=== PATIENT | female | born 1970 | race Caucasian/White ===

== ENCOUNTER 2021-12-26 12:58 | Outpatient (CLI) | payer OTHER, SELFPAY ==
[2021-12-26 13:29] LABS: Hematocrit 35.9 % (37.0-47.0); Hemoglobin 12.9 g/dL (12.0-15.0); Mean Corpuscular HGB Conc 35.9 g/dl (32-36); Mean Corpuscular Hemoglobin 30.4 pg (26-34); Mean Corpuscular Volume 84.7 fl (80-100); Mean Platelet Volume 9.8 fl (7.4-10.4); Platelet Count Result 290 k/mm3 (150-375); Red Blood Count 4.24 M/mm3 (4.2-5.4); Red Cell Distribution Width 12.5 % (11.5-14.5); White Blood Count 10.1 K/mm3 (4.5-10.0)
[2021-12-26 13:50] LABS: Potassium 2.1 mmol/L (3.4-5.0)
[2021-12-26 13:51] LABS: Alanine Aminotransferase 25 U/L (6-35); Albumin Level 4.4 g/dL (3.5-5.1); Alkaline Phosphatase 82 U/L (38-126); Aspartate Amino Transferase 30 U/L (14-36); Bilirubin,Total 0.3 mg/dL (0.2-1.3); Blood Urea Nitrogen 9 mg/dL (7-17); Calcium 9.5 mg/dL (8.4-10.2); Carbon Dioxide > 40 mmol/L (22-30); Chloride 84 mmol/L (98-107); Cholesterol 175 mg/dL (0-200); Estimated Glomerular Filt Rate > 60; Glucose 112 mg/dL (65-110); HDL Direct 32 mg/dL; Sodium 127 mmol/L (137-145); Triglycerides 221 mg/dL (<150)
[2021-12-26 13:54] LABS: LDL Cholesterol Direct 56 mg/dL
== END 2021-12-26 12:59 | disposition home or self-care (01) ==
LOC: ANHLAB 12:59
PROVIDERS: PCP Family Medicine; Visit Provider Nurse Practitioner Family
DX: E78.2 Mixed hyperlipidemia (principal); R63.5 Abnormal weight gain; Z13.29 Encounter for screening for other suspected endocrine disorder; Z72.0 Tobacco use
CPT/HCPCS: 36415; 80053; 80061; 84443; 85027

== ENCOUNTER 2021-12-26 15:08 | Observation (INO) | payer OTHER, SELFPAY ==
[2021-12-26] VITALS (8 sets, daily range): BP systolic 96–106; BP diastolic 50–67; PULSE 76–93; RESP 11–18; TEMP 36.4–36.6; O2SAT 71–100
--- NOTE | 2021-12-26 15:31 | ECG_ITS ---
Measurements Intervals [place] Rate: 87 P: 71 IN: 159 QRS: -1 QRSD: 83 T: 12 QT: 395 QTc: 476 Interpretive Statements SINUS RHYTHM INFERIOR MYOCARDIAL INFARCTION , OF INDETERMINATE AGE Electronically Signed On 12-27-2021 10:45:43 CDT by Aristeo Ahn M.D.
--- NOTE | 2021-12-26 15:38 | ED.GENADULT ---
HPI - General Adult General Chief complaint: Recheck/Abnormal Lab/Rx Stated complaint: potassium 2.1 labs today Time Seen by Provider: 12/26/21 15:31 Source: RN notes reviewed History of Present Illness HPI narrative: Patient presents emergency department from home for hypokalemia. Patient states she gone to her PCP today for routine blood follow-up as she has Sammy's thyroiditis. States she was called back and told to come to the emergency department secondary to her low potassium level. He states she has a history of low potassium in the past and had been on potassium pills but stopped taking her medicine a month ago because she did not like taking the large pills. She states that she is on hydrochlorothiazide she denies any fevers or chills chest pain or shortness of breath states she has been having some generalized fatigue Related Data Home Medications Medication Instructions Recorded Confirmed lipase 3,000-protease PO 11/30/21 12/01/21 9,500-amylase 15,000 unit capsule, delayed rel (Creon) Allergies Allergy/AdvReac Type Severity Reaction Status Date / Time adhesive Allergy Unknown Unknown Verified 12/26/21 15:24 Review of Systems Review of Systems: Gen.: Denies fevers or chills ENT: Denies congestion Respiratory: Denies shortness of breath or cough CV: Denies chest pain or palpitations GI: Denies abdominal pain nausea, emesis Musculoskeletal: Denies back pain or muscle pain Neuro: Denies numbness, tingling, reports mild weakness Skin: Denies rash Except as documented, all other systems reviewed and negative [facility] Past Medical History Medical History (Updated 12/26/21 @ 16:35 by Aidan Monroy DO) BMI 26.0-26.9,adult Brown recluse spider bite Sammy's thyroiditis Nausea Surgical History Surgical History H/O knee surgery Family History Family History Father Family history of diabetes mellitus in first degree relative Family history of malignant neoplasm of urinary bladder Family history of type 2 diabetes mellitus Mother Family history of heart disease in male family member before age 55 Heart disease Pacemaker Sibling No problems noted. 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 CARDIOVASCULAR: Regular rate and rhythm without murmurs rubs or gallops. ABDOMINAL: Soft, nontender, nondistended, no rebound or guarding MUSCULOSKELETAl: Moves all extremities. No clubbing, cyanosis or edema. NEURO: Awake and alert x 4. Following commands, speech normal, no focal deficits SKIN:: Warm, dry. No rashes lesions or abrasions PSYCHIATRIC: Normal affect/mood, Course Course Emergency Course: Reviewed previous lab results showing a potassium of 2.1 Called discussed with ESVIN Martinez for Dr. Baez agrees with admission Discussed with patient and family results of workup and diagnosis. Discussed need for admission. Patient and family understand and agree to current treatment plan Vital Signs Vital signs: Vital Signs Temperature 97.9 F 12/26/21 15:21 Pulse Rate 93
[2021-12-26 15:59] LABS: Basophils Absolute Auto 0.1 K/mm3 (0.0-0.1); Basophils Percent Auto 0.7 % (0.2-1.2); Eosinophils Absolute Auto 0.4 K/mm3 (0-0.3); Eosinophils Percent Auto 3.9 % (0-4.4); Hematocrit 34.6 % (37.0-47.0); Hemoglobin 12.3 g/dL (12.0-15.0); Immature Granulocyte Absolute 0.02 K/mm3 (0.00-0.031); Immature Granulocyte Percent A 0.2 % (0-0.5); Lymphocytes Absolute Auto 3.86 K/mm3 (0.9-3.2); Lymphocytes Percent Auto 40.9 % (18.3-44.2); Mean Corpuscular HGB Conc 35.5 g/dl (32-36); Mean Corpuscular Hemoglobin 30.3 pg (26-34); Mean Corpuscular Volume 85.2 fl (80-100); Mean Platelet Volume 9.5 fl (7.4-10.4); Monocytes Absolute Auto 0.9 K/mm3 (0.1-0.6); Monocytes Percent Auto 9.4 % (2.6-8.5); Neutrophils Absolute Auto 4.2 K/mm3 (1.3-6.7); Neutrophils Percent Auto 44.9 % (45.5-73.1); Platelet Count Result 258 k/mm3 (150-375); Red Blood Count 4.06 M/mm3 (4.2-5.4); Red Cell Distribution Width 12.6 % (11.5-14.5); White Blood Count 9.4 K/mm3 (4.5-10.0)
[2021-12-26 16:12] LABS: Alanine Aminotransferase 26 U/L (6-35); Albumin Level 4.3 g/dL (3.5-5.1); Alkaline Phosphatase 86 U/L (38-126); Anion Gap 5 mmol/L (8-16); Aspartate Amino Transferase 34 U/L (14-36); Bilirubin,Total 0.2 mg/dL (0.2-1.3); Blood Urea Nitrogen 9 mg/dL (7-17); Calcium 9.4 mg/dL (8.4-10.2); Carbon Dioxide 39 mmol/L (22-30); Chloride 84 mmol/L (98-107); Estimated CRCL calculation 109 ml/min; Estimated Glomerular Filt Rate > 60; Glucose 114 mg/dL (65-110); Magnesium 1.7 mg/dL (1.6-2.3); Potassium 2.3 mmol/L (3.4-5.0); Sodium 128 mmol/L (137-145)
[2021-12-26] MEDS: POTASSIUM CHLORIDE 20 MEQ TABLET 40 MEQ PO (17:06)
[2021-12-26] MEDS: POTASSIUM CHLORIDE INJ 40 MEQ in SODIUM CHLORIDE 0.9% IV 500 ML 130 MEQ IVPB (17:06)
[2021-12-26] MEDS: MAGNESIUM SULF 2 GM/WATER 50ML 2 GM/50 ML BAG IVPB (17:06)
[2021-12-26 17:57] LABS: SARS-CoV-2 RNA PCR Negative
--- NOTE | 2021-12-26 18:43 | ADMGEN ---
This patient, Jessica Rivera, was admitted to 2 Medical Room 242-01. Patient/family oriented to hospital policies and general routines including ID bracelet, bed and alarms, visiting hours, pain management, procedures, bathroom and other care routines, personal items, smoking policy, room service/diet, and visiting hours. Information on how to activate the Rapid Response Team has been discussed. Patient/Family are encouraged to report perceived risks to care and to ask questions if they do not understand what they are told or what they should do. Report received from DIAMOND Hurst
[2021-12-26] MEDS: POTASSIUM CHLORIDE 20 MEQ PACKET (FOR LIQUID) 40 MEQ PO (20:04)
--- NOTE | 2021-12-26 20:38 | PM.IMHP ---
H&P: HPI History of Present Illness Date/Time: 12/26/21 20:38 Chief Complaint: Low-potassium Narrative: 51-year-old female with past medical history hypertension, hyperlipidemia, breast cancer status post mastectomy, and recent abscess to her back who presented to the ER after outpatient labs returned with potassium of 2.1. The patient reports that she has chronic low potassium. She stops taking her potassium pills several months ago because she reported that her potassium was always low in the potassium did not seem to help and she was tired of taking large pills. She was noted to have borderline low blood pressures on arrival to the ER but she reports that she has chronic low blood pressures. She states that she has also had swelling in her hands and face since 2009 when she had her mastectomy and chemotherapy for her breast cancer. A couple of years after that she was started on hydrochlorothiazide to treat the swelling and she has been on hydrochlorothiazide since then. Although her external med rec states that the patient's but beyond 37.5 mg of hydrochlorothiazide daily she only takes 25 daily. She reports chronic urinary frequency but denies any dysuria or hematuria. She denies any incontinence of urine. She denies any chest pain or shortness of breath. She has not noticed any palpitations. She reports that she feels like her usual self and only got labs done today because her primary had ordered them as outpatient in she had never gotten around to getting them. She reports that her adopted daughter was in labor in labor and delivery and she thought she would take a moment and go to the lab to have her labs drawn. She was startled when her primary care physician's office called her and told her to come to the ER for treatment. She does have chronic intermittent diarrhea that she associates with pancreatic insufficiency. She denies any nausea or vomiting. Review of Systems Review of Systems: 12 systems were reviewed with pertinent positives and negatives per HPI. Except as documented in the HPI, all other systems were reviewed and are negative. [facility] Past Medical History Medical History (Updated 12/27/21 @ 04:33 by Laurence Pompa DO) Anxiety disorder BMI 26.0-26.9,adult Brown recluse spider bite (~12/2019) With chronic nonhealing wound Cancer of left breast (~07/2009) Chronic hypokalemia Chronic hyponatremia Chronic sinusitis GERD (gastroesophageal reflux disease) Sammy's thyroiditis Mixed hyperlipidemia Mixed stress and urge urinary incontinence Pancreatic insufficiency Peripheral neuropathy due to and not concurrent with chemotherapy Tobacco use Vitamin D deficiency, unspecified Surgical History Surgical History (Updated 12/26/21 @ 20:53 by Laurence Pompa DO) H/O bilateral salpingo-oophorectomy Laparoscopic History of breast reconstruction (08/2009) History of laparoscopic appendectomy (10/2015) History of left total mastectomy (08/2009) History of sinus surgery History of vaginal hysterectomy Status post open reduction with internal fixation of fracture (06/2019) Right patellar fracture Family History Family History Father Diabetes mellitus Bladder cancer Lung disease Mother Heart disease Pacemaker Hypothyroidism Kidney disease Sibling Seizure Social History Social History (Updated 12/26/21 @ 20:57 by Laurence Pompa DO) Social History: Code status: Full code Surrogate decision maker: Smoking packs per day: 1 Smoking cigarettes per day: 20.0 Years smoked: 40 Smoking pack-years: 40.00 Smoking status: Current every day smoker Tobacco type: cigarettes Alcohol intake: unknown Alcohol use details: 1-2 per month Substance use: never Additional living arrangements comments: Patient is . She is raise 2 children. 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 [place]
[2021-12-26] MEDS: PANTOPRAZOLE 40 MG TABLET PO (22:11)
[2021-12-26] MEDS: buPROPion HCL SR (12 HR) 150 MG TAB PO (22:11)
[2021-12-26] MEDS: OLOPATADINE 0.1% OPHTH SOLN 5 ML BTL 1 DROP EACH EYE (22:11)
[2021-12-26] MEDS: CITALOPRAM HYDROBROMIDE 20 MG TABLET 40 MG PO (22:28)
[2021-12-26 23:33] LABS: Phosphorus 2.2 mg/dL (2.5-4.5); Potassium 2.8 mmol/L (3.4-5.0)
[2021-12-27] VITALS: PULSE 88
[2021-12-27] MEDS: POTASSIUM/PHOSPHORUS/SODIUM 1.5 GM PACKET 1 PACKET PO (00:11)
[2021-12-27] MEDS: POTASSIUM CHLORIDE 20 MEQ TABLET 40 MEQ PO ×2 (00:12→09:19)
[2021-12-27 04:00] VITALS: PULSE 88
[2021-12-27 05:05] VITALS: BP 90/60; PULSE 81; RESP 16; TEMP 36.4; O2SAT 100
[2021-12-27 05:42] LABS: Basophils Absolute Auto 0.1 K/mm3 (0.0-0.1); Eosinophils Absolute Auto 0.4 K/mm3 (0-0.3); Eosinophils Percent Auto 4.4 % (0-4.4); Hematocrit 34.4 % (37.0-47.0); Hemoglobin 11.9 g/dL (12.0-15.0); Immature Granulocyte Absolute 0.02 K/mm3 (0.00-0.031); Immature Granulocyte Percent A 0.2 % (0-0.5); Lymphocytes Absolute Auto 4.16 K/mm3 (0.9-3.2); Lymphocytes Percent Auto 47.2 % (18.3-44.2); Mean Corpuscular HGB Conc 34.6 g/dl (32-36); Mean Corpuscular Hemoglobin 30.2 pg (26-34); Mean Corpuscular Volume 87.3 fl (80-100); Monocytes Absolute Auto 0.9 K/mm3 (0.1-0.6); Monocytes Percent Auto 10.2 % (2.6-8.5); Neutrophils Absolute Auto 3.3 K/mm3 (1.3-6.7); Platelet Count Result 246 k/mm3 (150-375); Red Blood Count 3.94 M/mm3 (4.2-5.4); Red Cell Distribution Width 12.5 % (11.5-14.5); White Blood Count 8.8 K/mm3 (4.5-10.0)
[2021-12-27 05:59] LABS: Alanine Aminotransferase 21 U/L (6-35); Albumin Level 3.5 g/dL (3.5-5.1); Alkaline Phosphatase 77 U/L (38-126); Anion Gap 0 mmol/L (8-16); Aspartate Amino Transferase 26 U/L (14-36); Bilirubin,Total 0.2 mg/dL (0.2-1.3); Blood Urea Nitrogen 9 mg/dL (7-17); Calcium 8.5 mg/dL (8.4-10.2); Carbon Dioxide 35 mmol/L (22-30); Chloride 96 mmol/L (98-107); Estimated CRCL calculation 81 ml/min; Estimated Glomerular Filt Rate > 60; Glucose 108 mg/dL (65-110); Potassium 3.2 mmol/L (3.4-5.0); Sodium 131 mmol/L (137-145)
[2021-12-27 07:25] LABS: Appearance Urine Clear (Clear); Bilirubin Urine Negative (Negative); Blood Urine Trace-lysed (Negative); Color Urine Yellow (Yellow); Glucose Urine UA Negative (Negative); Ketones Urine Negative (Negative); Leukocyte Esterase Ur 2+ LEU/UL (Negative); Nitrate Urine Negative (Negative); Protein Urine Negative (Negative); Specific Grav Ur 1.015 (1.001-1.035)
[2021-12-27 07:42] LABS: Bacteria Urine Trace /hpf; Squamous Epithelial Cell Urine Occasional /hpf (Few); WBC Urine 21-30 /hpf
[2021-12-27 07:52] LABS: Add Urine Microscopic? YES
[2021-12-27 08:00] VITALS: PULSE 88
[2021-12-27 08:18] LABS: Potassium Urine Random 13.6 meq/L; Sodium Urine Random 25 meq/L
--- NOTE | 2021-12-27 09:07 | PM.IMPN ---
Progress Note: A&P Assessment and Plan (1) Acute hypokalemia: Code(s): E87.6 - Hypokalemia Status: Acute Assessment and Plan: The patient has severe hypokalemia likely due to acute on chronic in nature given lack of rhythm disturbance. She has a history of known longstanding hypokalemia but quit taking her oral potassium supplements. It is been discussed with the patient in detail that she cannot quit her potassium supplements otherwise she will require repeat hospitalizations. Patient has received a total of 120 mEq of potassium replacement. Will repeat potassium level at 11:30 p.m.. Will continue to monitor on telemetry. (2) Low blood pressure reading: Code(s): R03.1 - Nonspecific low blood-pressure reading Status: Acute Assessment and Plan: The patient's blood pressures are borderline low. Will stop hydrochlorothiazide due to both hypokalemia, hyponatremia and low blood pressures. Given the patient's recurrent hypokalemia and chronically low blood pressure it would be advisable for the patient not be started back on hydrochlorothiazide as an antihypertensive. (3) Chronic hyponatremia: Code(s): E87.1 - Hypo-osmolality and hyponatremia Status: Acute Assessment and Plan: Hydrochlorothiazide has been stopped. Will repeat BMP in a.m.. (4) Tobacco use: Code(s): Z72.0 - Tobacco use Status: Acute Assessment and Plan: Tobacco cessation education was provided (5) Chronic hypokalemia: Code(s): E87.6 - Hypokalemia Status: Acute Plan Anxiety disorder BMI 26.0-26.9,adult Brown recluse spider bite ~12/2019 Cancer of left breast ~07/2009 Chronic hypokalemia Chronic hyponatremia Chronic sinusitis GERD (gastroesophageal reflux disease) Sammy's thyroiditis Mixed hyperlipidemia Mixed stress and urge urinary incontinence Pancreatic insufficiency Peripheral neuropathy due to and not concurrent with chemotherapy Tobacco use Vitamin D deficiency, unspecified Subjective Date/time seen: 12/27/21 09:07 Interval history: HPI: 51-year-old female with past medical history hypertension, hyperlipidemia, breast cancer status post mastectomy, and recent abscess to her back who presented to the ER after outpatient labs returned with potassium of 2.1.? The patient reports that she has chronic low potassium.? She stops taking her potassium pills several months ago because she reported that her potassium was always low in the potassium did not seem to help and she was tired of taking large pills.? She was noted to have borderline low blood pressures on arrival to the ER but she reports that she has chronic low blood pressures.? She states that she has also had swelling in her hands and face since 2009 when she had her mastectomy and chemotherapy for her breast cancer.? A couple of years after that she was started on hydrochlorothiazide to treat the swelling and she has been on hydrochlorothiazide since then.? Although her external med rec states that the patient's but beyond 37.5 mg of hydrochlorothiazide daily she only takes 25 daily.? She reports chronic urinary frequency but denies any dysuria or hematuria.? She denies any incontinence of urine.? She denies any chest pain or shortness of breath.? She has not noticed any palpitations.? She reports that she feels like her usual self and only got labs done today because her primary had ordered them as outpatient in she had never gotten around to getting them.? She reports that her adopted daughter was in labor in labor and delivery and she thought she would take a moment and go to the lab to have her labs drawn.? She was startled when her primary care physician's office called her and told her to come to the ER for treatment.? She does have chronic intermittent diarrhea that she associates with pancreatic insufficiency.? She denies any nausea or vomiting. 12/27/21 Review of Systems Review of Systems: All syste
[2021-12-27] MEDS: OLOPATADINE 0.1% OPHTH SOLN 5 ML BTL 1 DROP EACH EYE (09:11)
[2021-12-27] MEDS: buPROPion HCL SR (12 HR) 150 MG TAB PO (09:11)
[2021-12-27] MEDS: PRAVASTATIN SODIUM 20 MG TABLET PO (09:11)
[2021-12-27] MEDS: PANTOPRAZOLE 40 MG TABLET PO (09:11)
[2021-12-27] MEDS: LIPASE/AMYLASE/PROTEASE 12,000 UNITS CAP 1 CAP PO (09:11)
--- NOTE | 2021-12-27 10:14 | PM.DS ---
DS: Admitting Diagnosis Discharge Date 12/27/2021 Admitting Diagnosis severe hypokalemia DS: Discharge Diagnosis Discharge Diagnosis (1) Acute hypokalemia: Code(s): E87.6 - Hypokalemia Status: Acute Assessment and Plan: The patient has severe hypokalemia likely due to acute on chronic in nature given lack of rhythm disturbance. She has a history of known longstanding hypokalemia but quit taking her oral potassium supplements since past month. It is been discussed with the patient in detail that she cannot quit her potassium supplements otherwise she will require repeat hospitalizations. Patient has received a total of 120 mEq of potassium replacement. continued monitoring of potassium. Improved gradually to 3.2 by the time of discharge. Hydrochlorothiazide that might be 1 of the culprit is stopped and restarted on her regular potassium supplementation. It was reiterated to her to continue taking potassium supplement regularly. With hydrochlorothiazide being off she might not need as much however needed repeat evaluation with BMP in a week and revaluation by her primary care physician. (2) Low blood pressure reading: Code(s): R03.1 - Nonspecific low blood-pressure reading Status: Acute Assessment and Plan: The patient's blood pressures are borderline low. Chronically low and stable. Does have dirty UA suggestive of UTI. Will treat that with cephalexin. Urine culture is pending at the time of discharge. Follow-up with PCP with regard to this. Hydrochlorothiazide will also be stopped Which will help. (3) Chronic hyponatremia: Code(s): E87.1 - Hypo-osmolality and hyponatremia Status: Acute Assessment and Plan: Hydrochlorothiazide has been stopped. recheck BMP in a 1 week (4) Tobacco use: Code(s): Z72.0 - Tobacco use Status: Acute Assessment and Plan: Tobacco cessation education was provided (5) Chronic hypokalemia: Code(s): E87.6 - Hypokalemia Status: Acute Plan other chronic medical conditions: Anxiety disorder Cancer of left breast ~07/2009 Chronic hypokalemia Chronic hyponatremia Chronic sinusitis GERD (gastroesophageal reflux disease) Sammy's thyroiditis Mixed hyperlipidemia Mixed stress and urge urinary incontinence Pancreatic insufficiency Peripheral neuropathy due to and not concurrent with chemotherapy Tobacco use Vitamin D deficiency, unspecified DS: Summary Hospital Course Hospital Course: see above Time Spent with Patient Time attestation: Total time spent providing and/or coordinating discharge services:45 minutes Exam Narrative: GENERAL: The patient is well developed, not in acute distress HEENT: Nonicteric sclerae, PERRLA, EOMI. Oropharynx clear. Moist mucous membranes. Conjunctivae appear well perfused. CHEST: Chest wall is nontender. HEART: Regular rate and rhythm without murmur, rubs, or gallops LUNGS: Clear to auscultation bilaterally. no respiratory distress ABDOMEN: Soft, positive bowel sounds, non-tender, no organomegaly. SKIN: No rash, no excessive bruising, petechiae, or purpura. NEUROLOGIC: Cranial nerves II-XII intact, alert and oriented x 3, no gross motor deficits EXTREMITIES: no edema, cyanosis or clubbing Extrem: General: normal exam except as noted and no edema DS: Data Data Completed and Pending Labs on day of discharge: Labs from last 24 hours 12/27/21 12/27/21 12/27/21 07:02 07:02 04:55 WBC RBC Hgb Hct MCV MCH MCHC RDW Plt Count MPV Immature Gran % (Auto) Neut % (Auto) Lymph % (Auto) Reeves % (Auto) Eos % (Auto) Baso % (Auto) Lymph # (Auto) Reeves # (Auto) Eos # (Auto) Baso # (Auto) Abs Immat Gran (auto) Absolute Neuts (auto) Absolute Nucleated RBC Nucleated RBC % Sodium 131 L Potassium 3.2 L Chloride 96 L Carbon Dioxide 35 H Anion Gap 0 L BUN 9 Crea
== END 2021-12-27 11:20 | disposition home or self-care (01) ==
LOC: ANHED 16:35 → ANH2MED 18:30
PROVIDERS: Internal Medicine; Admitting Provider Internal Medicine; Emergency Provider Emergency Medicine; PCP Family Medicine; Visit Provider Internal Medicine
DX: E87.6 Hypokalemia (principal); R03.1 Nonspecific low blood-pressure reading; E87.1 Hypo-osmolality and hyponatremia; Z20.822 Contact with and (suspected) exposure to COVID-19; Z85.3 Personal history of malignant neoplasm of breast; K21.9 Gastro-esophageal reflux disease without esophagitis; E78.5 Hyperlipidemia, unspecified; E55.9 Vitamin D deficiency, unspecified; F17.210 Nicotine dependence, cigarettes, uncomplicated
CPT/HCPCS: 36415; 80053; 81001; 83735; 84100; 84132; 84133; 84300; 85025; 87086; 87088; 93005; 96365; 96375; 99285; A9270; C9803; G0378; J3475; J3480; J7040; U0003; U0005

== ENCOUNTER 2024-10-22 10:47 | Outpatient (CLI) | payer OTHER, SELFPAY ==
--- NOTE | ~2024-10-22 | CT_ITS ---
Clinical Indication: Rib fracture CT Scan of the Chest with Contrast: Technique: Contiguous sections were acquired throughout the chest after intravenous administration of 75 cc of Omnipaque 350. Dose reduction technique was used on this scan by utilizing automated exposu re control and iterative reconstruction technique. The dose-length product (DLP) was 159.05 mGy-cm. Findings: There is no evidence of any significant mediastinal, hilar or axillary lymphadenopathy. There is no f illing defect in the pulmonary arterial tree to suggest pulmonary embolus. There is no evidence of ao rtic dissection or aneurysm. There is no evidence of pleural or pericardial effusion. There is mild emphysema. 1.1 cm right upper lobe pulmonary nodule present (axial image 34). There is linear scarring left lung base. There is irregular groundglass/semisolid opacity in the left upper lo be (axial image 41), measuring up to approximately 31 mm in maximum extent. Images through the upper abdomen reveal no abnormalities. There are subacute to chronic fracture of the lateral right ninth rib. Impression: 1.1 cm right upper lobe pulmonary nodule, indeterminate. Consider short-term follow-up exam in 1-3 mo nths, PET/CT, or tissue sampling. Irregular groundglass/semisolid lesion left upper lobe, nonspecific. Recommend follow-up exam in 6-12 months. Subacute to chronic lateral right ninth rib fracture. Mild emphysema. Reviewed, dictated and finalized at [facility]. Impression: 1.1 cm right upper lobe pulmonary nodule, indeterminate. Consider short-term fo llow-up exam in 1-3 months, PET/CT, or tissue sampling. Irregular groundglass/semisolid lesion left upper lobe, nonspecific. Recommend follow-up exam in 6-12 months. Subacute to chronic lateral right ninth rib fracture. Mild emphysema.
[2024-10-22 11:22] LABS: Estimated Glomerular Filt Rate > 60
[2024-10-22 11:43] LABS: Basophils Absolute Auto 0.1 K/mm3 (0.0-0.1); Basophils Percent Auto 0.8 % (0.2-1.2); Eosinophils Absolute Auto 0.2 K/mm3 (0-0.3); Eosinophils Percent Auto 2.3 % (0-4.4); Hematocrit 34.1 % (37.0-47.0); Hemoglobin 11.6 g/dL (12.0-15.0); Immature Granulocyte Absolute 0.02 K/mm3 (0.00-0.031); Immature Granulocyte Percent A 0.2 % (0-0.5); Lymphocytes Absolute Auto 3.58 K/mm3 (0.9-3.2); Lymphocytes Percent Auto 36.4 % (18.3-44.2); Mean Corpuscular Volume 88.1 fl (80-100); Mean Platelet Volume 9.6 fl (7.4-10.4); Monocytes Absolute Auto 1.2 K/mm3 (0.1-0.6); Monocytes Percent Auto 11.7 % (2.6-8.5); Neutrophils Absolute Auto 4.8 K/mm3 (1.3-6.7); Neutrophils Percent Auto 48.6 % (45.5-73.1); Platelet Count Result 283 k/mm3 (150-375); Red Blood Count 3.87 M/mm3 (4.2-5.4); White Blood Count 9.8 K/mm3 (4.5-10.0)
[2024-10-22 11:58] LABS: Alanine Aminotransferase 29 U/L (6-35); Albumin Level 3.8 g/dL (3.5-5.1); Alkaline Phosphatase 101 U/L (38-126); Anion Gap 5 mmol/L (4-12); Aspartate Amino Transferase 32 U/L (14-36); Bilirubin,Total 0.7 mg/dL (0.2-1.3); Blood Urea Nitrogen 9 mg/dL (7-17); Carbon Dioxide 28 mmol/L (22-30); Chloride 97 mmol/L (98-107); Cholesterol 157 mg/dL (0-200); Estimated Glomerular Filt Rate > 60; Glucose 103 mg/dL (65-110); HDL Direct 38 mg/dL; Potassium 3.3 mmol/L (3.4-5.0); Sodium 130 mmol/L (137-145); Triglycerides 139 mg/dL (<150)
[2024-10-22 12:08] LABS: LDL Cholesterol Direct 48 mg/dL
--- OUTSIDE RECORDS SUMMARY | 2024-10-22 12:39 | XMS_ITS ---
Author Organization [facility] Address [address] [place] [address] J[place] [id number] Care Team Providers Care Private Detective Name Role Phone Amari Dong MD Primary Care Provider + [phone] Active Problems Problem Noted Date Diagnosed Date Pancreatolithiasis 01/08/2021 Cellulitis and abscess of right leg 02/22/2020 Assessment & Plan (02/23/2020 12:45 PM CDT): Excisional debridement and drainage in the operating room was recommended. Procedure was explained in detail. Postoperative pain, disability and presence of open wound requiring healing by granulation were explained. All patient questions were answered to her full satisfaction she wished to proceed with surgery. Hypokalemia 02/22/2020 Malignant neoplasm of left b reast in female, estrogen receptor positive 04/04/2018 Hyperlipidemia GERD (gastroesophageal reflux disease) Sammy's thyroiditis Depression Current Treatment and Therapy Plans No current plan information found. Past Treatment and Therapy Plans No past plan information found. 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 The lateral view shows fracture line is evident as well. Patient is smoker. Her surgery was over 90 days ago. There is been no significant sign of healing. The fracture gap measures less than 1 cm. I recommended using a bone stimulator to address his atrophic nonunion. I counseled the patient the negative effects of smoking and bone healing. Clinically she is able to perform active knee extension and on the x- ray it appears the lateral screw has callus on the AP view. She will follow up with me 4 weeks after she gets her bone stem. Displaced comminuted fracture of patella 06/20/2019 02/22/2020 Overview (06/20/2019): Added automatically from request for surgery [id number] Assessment & Plan (08/25/2019 4:33 PM PHARMACY DISTRICT MANAGER): X-rays taken the office today show maintenance of alignment. Alignment is near anatomic. Clinically she has excellent flexion up to 115. She is going to continue with physical therapy then transition to a home exercise program once the prescription is complete. Follow up with me in 1 month repeat x-rays Assessment & Plan (07/28/2019 8:37 PM PHARMACY DISTRICT MANAGER): X-rays show alignment. No evidence of displacement. Her incision is well healed. I recommended the patient continue with knee brace locked in full extension with ambulation. She is scheduled to begin physical therapy to work on passive flexion exercises. We discussed wound care. I reviewed with her the importance of continuing to wear her knee brace. She will follow up with me in 4 weeks repeat x-rays Assessment & Plan (07/14/2019 2:31 PM PHARMACY DISTRICT MANAGER): Patient was given a prescription for outpatient physical therapy. She can weight bear as tolerated with the knee locked in full extension using the immobilizer. We discussed wound care. She will need follow-up in 2 weeks to remove the adhesive bandage. Repeat x-rays at office visit in 2 weeks Assessment & Plan (07/07/2019 3:40 PM PHARMACY DISTRICT MANAGER): Repeat x-rays show persistent displacement transverse comminuted patella fracture. The patient has had electrolyte abnormalities with associated EKG changes that limits her ability to have surgery. She is scheduled to have labs drawn this afternoon. I would like to have her added on for surgery on Sunday. She was placed into a hinged knee brace locked in full extension today. Assessment & Plan (06/23/2019 12:34 PM PHARMACY DISTRICT MANAGER): The patient has a displaced comminuted fracture of the patella. She will need open reduction and internal fixation of the patella and patellar tendon. She will need to be immobilizer for approximately 6 weeks postoperatively. She did not wish to have her surgery performed prior to [place]. She will be scheduled for surgery after [place]. We discussed the risks of surgery including but not limited to persistent pain decreased range of motion stiffness and weakness. Informed consent was obtained. Displaced osteochondral frac ture of right patella 06/20/2019 02/22/2020 Overview (06/26/2019): Added automatically from request for surgery [id number]
--- OUTSIDE RECORDS SUMMARY | 2024-10-22 12:40 | XMS_ITS | Clinical Summary ---
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 Date Activated Date Inactivated Comments 02/22/2020 11:40 PM 02/23/2020 7:34 PM Care Teams Steel Erector Apprentice Relationship Specialty Start Date End Date Amari Dong MD PCP - General 06/17/19
--- OUTSIDE RECORDS SUMMARY | 2024-10-22 12:40 | XMS_ITS | Referral Summary ---
Author Organization [facility] Address [address] [place] [id number] Care Team Providers Care Screw Machine Tender Name Role Phone Amari Dong MD Primary Care Provider + [phone] Encounters Date Type Department Care Team Description 07/31/2024 12:26 PM BLENDER CONVEYOR OPERATOR - 07/31/2024 4:23 PM [facility] Emergency [facility] [address] [place] [address] Mass of right lung (Primary Dx); Mass of left lung; Chronic obstructive pulmonary disease with acute exacerbation (HCC); Closed fracture of one rib of right side, initial encounter Discharge Disposition: Discharge to home or self care from Last 3 Months Allergies Active Allergy Reactions Criticality Noted Date Comments Adhesive Rash Medium 07/07/2019 Medications buPROPion SR (WELLBUTRIN SR) 150 mg 12 hr tablet TK 1 T PO BID 0 9 Active citalopram (CeleXA) 40 mg tablet TK 1 T PO QD 3 9 Active hydroCHLOROthia zide (HYDRODIURIL) 25 mg tablet TK 1 AND /2 TS PO QD 2 9 Active omeprazole [...] (07/08/2019): Added automatically from request for surgery [id number] Assessment & Plan (11/03/2019 1:27 PM CDT): [...] (06/20/2019): Added automatically from request for surgery [id number] Assessment & Plan (08/25/2019 4:33 PM BLENDER CONVEYOR OPERATOR): X-rays taken the office today show maintenance of alignment. Alignment is near anatomic. Clinically she has excellent flexion up to 115. She is going to continue with physical therapy then transition to a home exercise program once the prescription is complete. Follow up with me in 1 month repeat x-rays Assessment & Plan (07/28/2019 8:37 PM BLENDER CONVEYOR OPERATOR): X-rays show alignment. No evidence of displacement. [...] x-rays Assessment & Plan (07/14/2019 2:31 PM BLENDER CONVEYOR OPERATOR): Patient was given a prescription for outpatient physical therapy. She can weight bear as tolerated with the knee locked in full extension using the immobilizer. We discussed wound care. She will need follow-up in 2 weeks to remove the adhesive bandage. Repeat x-rays at office visit in 2 weeks Assessment & Plan (07/07/2019 3:40 PM BLENDER CONVEYOR OPERATOR): Repeat x-rays show persistent displacement transverse comminuted [...] today. Assessment & Plan (06/23/2019 12:34 PM BLENDER CONVEYOR OPERATOR): The patient has a displaced comminuted fracture of the patella. She will need open reduction and internal fixation of the patella and patellar tendon. She will need to be immobilizer for approximately 6 weeks postoperatively. She did not wish to have her surgery performed prior to [place]. She will be scheduled for surgery after [place]. We discussed the risks of surgery including but not limited to persistent pain decreased range of motion stiffness and weakness. Informed consent was obtained. Displaced osteochondral frac ture of right patella 06/20/2019 02/22/2020 Overview (06/26/2019): Added automatically from request for surgery [id number] Immunizations Immunization Administration Dates Next Due Influenza, Unspecified 04/04/2016,02/23/2015, Social History Tobacco Use Types Packs/Day Years [...] on file Legal Sex Female 8:23 PM BLENDER CONVEYOR OPERATOR Gender Identity Not on file Sexual Orientation Not on file Last Filed Vital Signs Vital Sign Reading Time Taken Comments Blood Pressure 123/85 07/31/2024 4:21 PM BLENDER CONVEYOR OPERATOR Pulse 81 07/31/2024 4:21 PM BLENDER CONVEYOR OPERATOR Temperature 36.6 C (97.8 F) 07/31/2024 4:21 PM BLENDER CONVEYOR OPERATOR Respiratory Rate 17 07/31/2024 4:21 PM BLENDER CONVEYOR OPERATOR Oxygen Saturation 99% 07/31/2024 4:21 PM BLENDER CONVEYOR OPERATOR Inhaled Oxygen Concentration - - Weight 77.1 kg (169 lb 15.6 oz) 025 10:32 AM BLENDER CONVEYOR OPERATOR Height 172.7 cm (5' 8 ) 11/25/2021 1:06 PM CDT Body Mass Index 25.84 11/25/2021 1:06 PM CDT Plan of Treatment Not on file Medical Devices Implanted Type Area General Practice Device Identifier Shelf Expiration Date Model / Serial / Lot Implants N/A: Breast [employer]hew/Rich[employer]/ Ortho [id number] Tc-100 7mm Hexagon Washer Orthopedic Nonsterile - [id number] Implanted:Qty: 2 on 07/09/2019 by Pavan Momin DO at [facility] Right: Knee [employer]hew/Richco/Or tho [id number] / / Lu[employer] Nephew/Richco/ Ortho [id number] Nieves-Loc 4mm 6mm 46mm 15mm Self Tap Cannulated Trocar Hip 2.5mm - [id number] Implanted:Qty: 1 on 07/09/2019 by Pavan Momin DO at [facility] Right: Knee Luu [employer] Nephew/Richco/Or tho [id number] / / Luu [employer] Nephew/Richco/ Ortho [id number] 4mm 6mm 1.3mm 44mm 2.9mm Cannulated Self Tap Self Drill Trocar - [id number] Implanted:Qty: 1 on 07/09/2019 by Pavan Momin DO at [facility] Right: Knee Lu[employer]hew/Richco/Or tho [id number] / / Procedures Procedure Name Priority Date/Time Associated Diagnosis Comments CT CHEST PE W CONTRAST ED 2:20 PM BLENDER CONVEYOR OPERATOR EGFR STAT 07/31/2024 1:14 PM BLENDER CONVEYOR OPERATOR DIFFERENTIAL AUTO STAT 07/31/2024 1:1 4 PM BLENDER CONVEYOR OPERATOR COMPREHENSIVE METABOLIC PANEL STAT 07/31/2024 1:14 PM BLENDER CONVEYOR OPERATOR CBC WITH AUTO DIFFERENTIAL STAT 07/31/2024 1:14 PM BLENDER CONVEYOR OPERATOR ECG 12-LEAD Routine 07/31/2024 1:05 PM BLENDER CONVEYOR OPERATOR XR RIBS RIGHT W PA CHEST ED 07/31/2024 11:02 AM BLENDER CONVEYOR OPERATOR INFLUENZA A/B, RSV, AND COVID-19 PCR Routine 07/31/2024 10:39 AM BLENDER CONVEYOR OPERATOR from Last 3 Months Results * CT Chest PE (CTA) W Contrast (07/31/2024 2:20 PM BLENDER CONVEYOR OPERATOR) Anatomical Region Laterality Modality Body N/A Computed Tomogra phy 07/31/2024 3:09 PM BLENDER CONVEYOR OPERATOR Impressions 08/01/2024 9:35 AM BLENDER CONVEYOR OPERATOR 1. No acute pulmonary embolism. 2. Spiculated [...] Verona Diane M.D. Narrative 08/01/2024 9:35 AM BLENDER CONVEYOR OPERATOR EXAMINATION: CT CHEST PE (CTA) W CONTRAST [...] also slightly increased in size compared to 202 CT. Emphysematous changes of bilateral lung apices. [...] signed by: Verona Diane M.D. Ruthy Agudelo [facility] MANAGER PROJECT IMG CT PROCEDURES F inal Result * eGFR (07/31/2024 1:14 PM BLENDER CONVEYOR OPERATOR) eGFR >90 >=60 mL/min/1. 73 m2 Comment: [...] last reviewed 2021. Blood 07/31/2024 1:14 PM BLENDER CONVEYOR OPERATOR 07/31/2024 1:16 PM BLENDER CONVEYOR OPERATOR us Ruthy Agudelo [facility] MANAGER PROJECT LAB BLOOD ORDERABLE S Final Result [facility]) [address] [place] [address] * Differential, auto (07/31/2024 1:14 PM BLENDER CONVEYOR OPERATOR) Neutrophil abs 5.4 1.5 - 6.5 K/cumm Imm gran abs 0.0 0.0 - 0.1 K/cumm [facility] ([place]) Lymphocyte abs 3.3 0.8 - 3.3 K/cumm [facility]) Monocyte abs 0.7 0.2 - 0.8 K/cumm [facility]) Eosinophil abs 0.4 0.0 - 0.5 K/cumm [facility] ([place]) Basophil abs 0.1 0.0 - 0.1 K/cumm [facility] ([place]) Neutrophil pct 53.8 % [facility] ([place]) Comment: Interpretive Data Percent cell count reference ranges are not reported, since discordance with absolute values may lead to misinterpretation of CBC data. Current Interpretive Data was last revised on 2017. Imm gran pct 0.4 % [facility] ([place]) Comment: Interpretive Data Percent cell count reference ranges are not reported, since discordance with absolute values may lead to misinterpretation of CBC data. Current Interpretive Data was last revised on 2017. Lymphocyte pct 32.9 % [facility] ([place]) Comment: Interpretive Data Percent cell count reference ranges are not reported, since discordance with absolute values may lead to misinterpretation of CBC data. Current Interpretive Data was last revised on 2017. Monocyte pct 7.4 % [facility] ([place]) Comment: Interpretive Data Percent cell count reference ranges are not reported, since discordance with absolute values may lead to misinterpretation of CBC data. Current Interpretive Data was last revised on 2017. Eosinophil pct 4.1 % [facility] Comment: Interpretive Data Percent cell count reference ranges are not reported, since discordance with absolute values may lead to misinterpretation of CBC data. Current Interpretive Data was last revised on 2017. Basophil pct 1.4 % [facility] ([place]) Comment: Interpretive Data Percent cell count reference ranges are not reported, since discordance with absolute values may lead to misinterpretation of CBC data. Current Interpretive Data was last revised on 2017. Blood 07/31/2024 1:14 PM BLENDER CONVEYOR OPERATOR 07/31/2024 1:16 PM BLENDER CONVEYOR OPERATOR us Ruthy Agudelo [facility] MANAGER PROJECT LAB BLOOD ORDERABLE S Final Result [facility]) [address] Department [place] [address] * (ABNORMAL) CBC with auto differential (07/31/2024 1:14 PM BLENDER CONVEYOR OPERATOR) WBC 10.0(H) 3.8 - 9.9 K/cumm Hgb 12.5 11.9 - 15.5 g/dL [facility]) Hct 36.4 35.6 - 45.5 % [facility] ([place]) Plt 490(H) 150 - 400 K/cumm [facility]) MPV 8.5(L) 9.1 - 12.3 fL [facility] ([place]) RBC 4.24 3.90 - 5.20 M/cumm [facility]) MCV 85.8 81.3 - 96.4 fL [facility]) MCH 29.5 27.1 - 33.3 pg [facility] MCHC 34.3 32.3 - 35.7 g/dL [facility]) RDW CV 12.8 11.1 - 14.9 % [facility]) RDW SD 39.9 35.7 - 48.1 fL [facility] NRBC abs 0.00 0.00 - 0.01 K/cumm [facility]) Blood 07/31/2024 1:14 PM BLENDER CONVEYOR OPERATOR 07/31/2024 1:16 PM BLENDER CONVEYOR OPERATOR us Ruthy Agudelo [facility] MANAGER PROJECT LAB BLOOD ORDERABLE S Final Result [facility]) [address] Department [place] [address] * (ABNORMAL) Comprehensive metabolic panel (07/31/2024 1:14 PM BLENDER CONVEYOR OPERATOR) Sodium 130(L) 135 - 145 mmol/L Potassium, pl 4.2 3.3 - 4.9 mmol/L [facility]) Chloride 93(L) 97 - 110 mmol/L [facility]) CO2 27.0 22.0 - 32.0 mmol/L [facility]) Anion gap 10 2 - 15 mmol/L [facility]) BUN 5(L) 6 - 25 mg/dL [facility]) Creatinine 0.57(L) 0.60 - 1.10 mg/dL [facility]) Glucose 88 70 - 199 mg/dL [facility] Comment: Interpretive Data Fasting glucose >/= 126 [...] 2022 Calcium 9.3 8.5 - 10.3 mg/dL [facility]) Bilirubin, total 0.2 0.1 - 1.2 mg/dL [facility]) Protein, pl 6.9 6.5 - 8.5 g/dL [facility]) Albumin 3.9 3.5 - 5.0 g/dL [facility]) Alk phos 120 40 - 130 Units/L [facility] ALT 21 7 - 45 Units/L [facility] AST 19 10 - 45 Units/L [facility]) Blood 07/31/2024 1:14 PM BLENDER CONVEYOR OPERATOR 07/31/2024 1:16 PM BLENDER CONVEYOR OPERATOR us Ruthy Agudelo [facility] MANAGER PROJECT LAB BLOOD ORDERABLE S Final Result Performing Organization Address City/State/[facility] Co de Phone Number [facility]) [address] Department of Laboratories JED [place] [id number] * ECG 12 lead (07/31/2024 1:05 PM BLENDER CONVEYOR OPERATOR) 07/31/2024 1:05 PM BLENDER CONVEYOR OPERATOR Narrative [facility] - 08/02/2024 8:24 AM BLENDER CONVEYOR OPERATOR Vent Rate: 78 bpm RR Interval: 762 msec [place] Interval: 146 msec QRS Duration: 74 msec QT Interval: 376 msec QTC Interval: 410 msec P-R-T [place]: 75 - -22 - 17 degrees IMPRESSION: SINUS RHYTHM LOW VOLTAGE ECG POSSIBLE ANTERIOR MYOCARDIAL INFARCTION , OF INDETERMINATE AGE ABNORMAL ECG NO PREVIOUS TRACING AVAILABLE FOR COMPARISON Electronically Signed By: Dr. Bismark Ewing M.D. Ruthy Garcia Sarah MANAGER PROJECT ECG ORDERABLES Fin al Result [facility] * XR Ribs Right W PA Chest 3 or More Views (07/31/2024 11:02 AM BLENDER CONVEYOR OPERATOR) Anatomical Region Laterality Modality Rib, Chest Right Computed Radiogr aphy 07/31/2024 11:4 6 AM BLENDER CONVEYOR OPERATOR Impressions 07/31/2024 12:44 PM BLENDER CONVEYOR OPERATOR No prior chest radiograph available for comparison. [...] Verona Diane M.D. Narrative 07/31/2024 12:44 PM BLENDER CONVEYOR OPERATOR EXAMINATION: XR RIBS RIGHT W PA CHEST [...] it. Electronically signed by: Verona Diane M.D. us Kaleb Cruz MD IMG XR PROCEDURES Final Res ult * Influenza A/B, RSV, and COVID-19 PCR Nasopharyngeal (07/31/2024 10:39 AM BLENDER CONVEYOR OPERATOR) COVID-19 RNA Negative Negative Influenza A RNA Negative Negative [facility] ([place]) Influenza B RNA Negative Negative [facility] ([place]) RSV RNA Negative Negative [facility] ([place]) Comment: Interpretive data: Testing performed by [facility]. This test is performed using the [employer] Xpert Xpress CoV-2/Flu/RSV plus assay. This is a multiplex, real-time reverse transcriptase PCR assay intended for the qualitative detection of nucleic acid from SARS-CoV-2, influenza A, influenza B, and respiratory syncytial virus. This assay has been cleared by the [place] Food and Drug administration. The performance characteristics have been verified by the [facility]. Results must be considered in the clinical context, and a negative result does not rule out infection. Interpretive Data last revised 2023 Nasopharyngeal 07/31/2024 10 :39 AM BLENDER CONVEYOR OPERATOR 07/31/2024 10:42 AM BLENDER CONVEYOR OPERATOR Narrative [facility] ([place] - 07/31/2024 11:19 AM BLENDER CONVEYOR OPERATOR Is the Patient experiencing symptoms consistent with COVID?->Yes Kaleb Cruz MD LAB MICROBIOLOGY - GENERAL ORDERABLES Final Result [facility] ([place]) [address] Department of Laboratories JED [place] [id number] from Last 3 Months Insurance AETNA SIG [id number] IDPA AETNA SIG [id number] [facility] CMR Advance Directives For more information, please contact: [phone] * Full Code (Latest Code Status on File) Date Activated Date Inactivated Comments 02/22/2020 11:40 PM 02/23/2020 7:34 PM Care Teams Screw Machine Tender Relationship Specialty Start Date End Date Amari Dong MD PCP - General 06/17/19
== END 2024-10-22 10:48 | disposition home or self-care (01) ==
PROVIDERS: Physician Assistant Medical; PCP Family Medicine; Visit Provider Nurse Practitioner Family
DX: S22.31XA Fracture of one rib, right side, initial encounter for closed fracture (principal); R91.1 Solitary pulmonary nodule; J43.9 Emphysema, unspecified; E78.5 Hyperlipidemia, unspecified; E78.2 Mixed hyperlipidemia; E06.3 Autoimmune thyroiditis; R73.09 Other abnormal glucose; K86.89 Other specified diseases of pancreas
CPT/HCPCS: 36415; 71260; 80053; 80061; 84443; 85025; Q9967

== ENCOUNTER 2024-11-26 13:08 | Outpatient (CLI) | payer OTHER, SELFPAY ==
--- OUTSIDE RECORDS SUMMARY | 2024-11-26 13:13 | XMS_ITS | Clinical Summary ---
Author Organization [facility] Address [address] [place] [address] [place] [id number] Care Team Providers Care Visual Merchandising Coordinator Name Role Phone Amari Dong MD Primary Care Provider + [phone] Allergies Active Allergy Reactions Criticality Noted Date [...] (07/08/2019): Added automatically from request for surgery [id number] Assessment & Plan (11/03/2019 1:27 PM CDT): [...] (06/20/2019): Added automatically from request for surgery [id number] Assessment & Plan (08/25/2019 4:33 PM PROFESSIONAL POKER PLAYER): X-rays taken the office today show maintenance of alignment. Alignment is near anatomic. Clinically she has excellent flexion up to 115. She is going to continue with physical therapy then transition to a home exercise program once the prescription is complete. Follow up with me in 1 month repeat x-rays Assessment & Plan (07/28/2019 8:37 PM PROFESSIONAL POKER PLAYER): X-rays show alignment. No evidence of displacement. [...] x-rays Assessment & Plan (07/14/2019 2:31 PM PROFESSIONAL POKER PLAYER): Patient was given a prescription for outpatient physical therapy. She can weight bear as tolerated with the knee locked in full extension using the immobilizer. We discussed wound care. She will need follow-up in 2 weeks to remove the adhesive bandage. Repeat x-rays at office visit in 2 weeks Assessment & Plan (07/07/2019 3:40 PM PROFESSIONAL POKER PLAYER): Repeat x-rays show persistent displacement transverse comminuted [...] today. Assessment & Plan (06/23/2019 12:34 PM PROFESSIONAL POKER PLAYER): The patient has a displaced comminuted fracture of the patella. She will need open reduction and internal fixation of the patella and patellar tendon. She will need to be immobilizer for approximately 6 weeks postoperatively. She did not wish to have her surgery performed prior to [place]. She will be scheduled for surgery after [place]. We discussed the risks of surgery including but not limited to persistent pain decreased range of motion stiffness and weakness. Informed consent was obtained. 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 07/08/2019 Added automatically from req uest for surgery [id number] Family History Medical History Relation Name Comments [...] on file Legal Sex Female 8:23 PM PROFESSIONAL POKER PLAYER Gender Identity Not on file Sexual Orientation Not on file Obstetrics History Last Filed Vital Signs Vital Sign Reading Time Taken Comments Blood Pressure 123/85 07/31/2024 4:21 PM PROFESSIONAL POKER PLAYER Pulse 81 07/31/2024 4:21 PM PROFESSIONAL POKER PLAYER Temperature 36.6 C (97.8 F) 07/31/2024 4:21 PM PROFESSIONAL POKER PLAYER Respiratory Rate 17 07/31/2024 4:21 PM PROFESSIONAL POKER PLAYER Oxygen Saturation 99% 07/31/2024 4:21 PM PROFESSIONAL POKER PLAYER Inhaled Oxygen Concentration - - Weight 77.1 kg (169 lb 15.6 oz) 025 10:32 AM PROFESSIONAL POKER PLAYER Height 172.7 cm (5' 8) 11/25/2021 1:06 PM CDT Body Mass Index [...] Vaccine (1 of 2) 2018 Influenza Vaccine (Season Ended) 2025 04/04/2016, 02/23/2015, 01/13/2014 Medical Devices Implanted Type Area Copping Machine Operator Device Identifier Shelf Expiration Date Model / Serial / Lot Implants N/A: Breast [employer]/ Ortho [id number] Tc-100 7mm Hexagon Washer Orthopedic Nonsterile - [id number] Implanted:Qty: 2 on 07/09/2019 by Pavan Momin DO at [facility] Right: Knee [employer]/Or tho [id number] / / [employer]/ Ortho [id number] Nieves-Loc 4mm 6mm 46mm 15mm Self Tap Cannulated Trocar Hip 2.5mm - [id number] Implanted:Qty: 1 on 07/09/2019 by Pavan Momin DO at [facility] Right: Knee [employer]hew/Richco/Or tho [id number] / / Lu[employer]hew[employer]/ Ortho [id number] 4mm 6mm 1.3mm 44mm 2.9mm Cannulated Self Tap Self Drill Trocar - [id number] Implanted:Qty: 1 on 07/09/2019 by Pavan Momin DO at [facility] Right: Knee [employer]hew/Richco/Or tho [id number] / / Insurance JED DAHL [id number] AETNA SIG [id number] JED DAHL [id number] IDPA [facility] [place] [address] [place] [id number] [facility] CMR Advance Directives For more information, please contact: [phone] * Full Code (Latest Code Status on File) Date Activated Date Inactivated Comments 02/22/2020 11:40 PM 02/23/2020 7:34 PM Care Teams Visual Merchandising Coordinator Relationship Specialty Start Date End Date Amari Dong MD PCP - General 06/17/19
--- OUTSIDE RECORDS SUMMARY | 2024-11-26 13:13 | XMS_ITS | Referral Summary ---
Author Organization [facility] Address [address] [place] [address] [place] [address] Care Team Providers Care Shot Hole Shooter Name Role Phone Amari Dong MD Primary Care Provider + [phone] Allergies Active Allergy Reactions Criticality Noted Date [...] (07/08/2019): Added automatically from request for surgery [id number] Assessment & Plan (11/03/2019 1:27 PM CDT): [...] (06/20/2019): Added automatically from request for surgery [id number] Assessment & Plan (08/25/2019 4:33 PM ELECTRO MECHANICAL DESIGNER): X-rays taken the office today show maintenance of alignment. Alignment is near anatomic. Clinically she has excellent flexion up to 115. She is going to continue with physical therapy then transition to a home exercise program once the prescription is complete. Follow up with me in 1 month repeat x-rays Assessment & Plan (07/28/2019 8:37 PM ELECTRO MECHANICAL DESIGNER): X-rays show alignment. No evidence of displacement. [...] x-rays Assessment & Plan (07/14/2019 2:31 PM ELECTRO MECHANICAL DESIGNER): Patient was given a prescription for outpatient physical therapy. She can weight bear as tolerated with the knee locked in full extension using the immobilizer. We discussed wound care. She will need follow-up in 2 weeks to remove the adhesive bandage. Repeat x-rays at office visit in 2 weeks Assessment & Plan (07/07/2019 3:40 PM ELECTRO MECHANICAL DESIGNER): Repeat x-rays show persistent displacement transverse comminuted [...] today. Assessment & Plan (06/23/2019 12:34 PM ELECTRO MECHANICAL DESIGNER): The patient has a displaced comminuted fracture of the patella. She will need open reduction and internal fixation of the patella and patellar tendon. She will need to be immobilizer for approximately 6 weeks postoperatively. She did not wish to have her surgery performed prior to [place]. She will be scheduled for surgery after [place]. We discussed the risks of surgery including but not limited to persistent pain decreased range of motion stiffness and weakness. Informed consent was obtained. Displaced osteochondral frac ture of right patella 06/20/2019 02/22/2020 Overview (06/26/2019): Added automatically from request for surgery [id number] Immunizations Immunization Administration Dates Next Due Influenza, [...] on file Legal Sex Female 8:23 PM ELECTRO MECHANICAL DESIGNER Gender Identity Not on file Sexual Orientation Not on file Last Filed Vital Signs Vital Sign Reading Time Taken Comments Blood Pressure 123/85 07/31/2024 4:21 PM ELECTRO MECHANICAL DESIGNER Pulse 81 07/31/2024 4:21 PM ELECTRO MECHANICAL DESIGNER Temperature 36.6 C (97.8 F) 07/31/2024 4:21 PM ELECTRO MECHANICAL DESIGNER Respiratory Rate 17 07/31/2024 4:21 PM ELECTRO MECHANICAL DESIGNER Oxygen Saturation 99% 07/31/2024 4:21 PM ELECTRO MECHANICAL DESIGNER Inhaled Oxygen Concentration - - Weight 77.1 kg (169 lb 15.6 oz) 025 10:32 AM ELECTRO MECHANICAL DESIGNER Height 172.7 cm (5' 8) 11/25/2021 1:06 PM CDT Body Mass Index 25.84 11/25/2021 1:06 PM CDT Plan of Treatment Not on file Medical Devices Implanted Type Area Ux Engineer Device Identifier Shelf Expiration Date Model / Serial / Lot Implants N/A: Breast [employer]hew/Rich[employer]/ Ortho [id number] Tc-100 7mm Hexagon Washer Orthopedic Nonsterile - [id number] Implanted:Qty: 2 on 07/09/2019 by Pavan Momin DO at [facility] Right: Knee [employer]hew/Richco/Or tho [id number] / / Lu[employer]hew/Richco/ Ortho [id number] Nieves-Loc 4mm 6mm 46mm 15mm Self Tap Cannulated Trocar Hip 2.5mm - [id number] Implanted:Qty: 1 on 07/09/2019 by Pavan Momin DO at [facility] Right: Knee [employer]hew/Richco/Or tho [id number] / / Lu[employer]hew/Richco/ Ortho [id number] 4mm 6mm 1.3mm 44mm 2.9mm Cannulated Self Tap Self Drill Trocar - [id number] Implanted:Qty: 1 on 07/09/2019 by Pavan Momin DO at [facility] Right: Knee [employer]hew/Richco/Or tho [id number] / / Insurance JED DAHL [id number] [facility] SIG [id number] IDMA [facility] Advance Directives For more information, please contact: [phone] * Full Code (Latest Code Status on File) Date Activated Date Inactivated Comments 02/22/2020 11:40 PM 02/23/2020 7:34 PM Care Teams Shot Hole Shooter Relationship Specialty Start Date End Date Amari Dong MD PCP - General 06/17/19
--- OUTSIDE RECORDS SUMMARY | 2024-11-26 13:13 | XMS_ITS ---
Author Organization [facility] Address [address] [place] [address] [place] [address] Care Team Providers Care Webbing Weaver Name Role Phone Amari Dong MD Primary Care Provider + [phone] Active Problems Problem Noted Date Diagnosed Date [...] (07/08/2019): Added automatically from request for surgery [id number] Assessment & Plan (11/03/2019 1:27 PM CDT): [...] (06/20/2019): Added automatically from request for surgery [id number] Assessment & Plan (08/25/2019 4:33 PM GENERAL EDUCATION PROFESSOR): X-rays taken the office today show maintenance of alignment. Alignment is near anatomic. Clinically she has excellent flexion up to 115. She is going to continue with physical therapy then transition to a home exercise program once the prescription is complete. Follow up with me in 1 month repeat x-rays Assessment & Plan (07/28/2019 8:37 PM GENERAL EDUCATION PROFESSOR): X-rays show alignment. No evidence of displacement. [...] x-rays Assessment & Plan (07/14/2019 2:31 PM GENERAL EDUCATION PROFESSOR): Patient was given a prescription for outpatient physical therapy. She can weight bear as tolerated with the knee locked in full extension using the immobilizer. We discussed wound care. She will need follow-up in 2 weeks to remove the adhesive bandage. Repeat x-rays at office visit in 2 weeks Assessment & Plan (07/07/2019 3:40 PM GENERAL EDUCATION PROFESSOR): Repeat x-rays show persistent displacement transverse comminuted [...] today. Assessment & Plan (06/23/2019 12:34 PM GENERAL EDUCATION PROFESSOR): The patient has a displaced comminuted fracture of the patella. She will need open reduction and internal fixation of the patella and patellar tendon. She will need to be immobilizer for approximately 6 weeks postoperatively. She did not wish to have her surgery performed prior to [place]. She will be scheduled for surgery after [place]. We discussed the risks of surgery including but not limited to persistent pain decreased range of motion stiffness and weakness. Informed consent was obtained. Displaced osteochondral frac ture of right patella 06/20/2019 02/22/2020 Overview (06/26/2019): Added automatically from request for surgery [id number]
--- NOTE | 2024-12-04 13:22 | WPDPFTINT ---
PFT Procedure Performed PFT Procedure Performed Spirometry with Pre/Post Bronchodilator Plethysmography (Lung Vol) Diffusing Cap (DLCO) Flow Vol Loop PFT Interpretation DOS: 11/26/2024 REQUESTING: Jamison Goncalves APRN REASON FOR TESTING: COPD PULMONARY FUNCTION TESTS Results are reliable and reproducible. Repeatability of spirometry FEV1 maneuver pre and post bronchodilator is Grade A. GLI 2012 reference equations were used. Spirometry: The pre-bronchodilator FEV1 is 2.12 L, 71%, mildly decreased. The pre-bronchodilator FVC is 2.95 L, 78%, normal. The FEV1/FVC ratio is 72%, normal. After bronchodilator, the FEV1 is 2.08 L, 70%,-2%. After bronchodilator, the FVC is 2.79 L, 74%, -5%. The FEV1/FVC ratio is 75%. Lung volumes: The total lung capacity is 3.90 L, 69%, mildly reduced. FRC is 1.45 L, 45%, reduced. The residual volume is 0.95 L, 45%, reduced. The RV/TLC is 24%, reduced. Airway resistance is increased. Diffusion: DLCO is 12.3, 52%, moderately reduced. The DLCO/VA is 2.89, 67%, reduced. Flow volume loop: The flow volume loop shows one normal attempt pre bronchodilator, and one normal attempt post bronchodilator. IMPRESSION: This study shows a mild decrease in FEV1 and FVC without airflow obstruction, no response to bronchodilator, mild restriction and moderate diffusion impairment. No prior studies for comparison. Lack of response to bronchodilator should not preclude use if clinically indicated. Adriana Fajardo MD
== END 2024-11-26 13:09 | disposition home or self-care (01) ==
PROVIDERS: PCP Family Medicine; Visit Provider Nurse Practitioner Family
DX: J44.9 Chronic obstructive pulmonary disease, unspecified (principal)
CPT/HCPCS: 94060; 94726; 94729

== ENCOUNTER 2024-11-27 11:40 | Outpatient (CLI) | payer OTHER, SELFPAY ==
--- NOTE | ~2024-11-27 | PE_ITS ---
EXAMINATION: PET skull to mid thigh DATE: 11/27/2024 13:40 INDICATION: Lung nodule TECHNIQUE: Blood glucose level was 119 mg/dL. 11.292 mCi of 18-fluorodeoxyglucose (18-FDG) was admini stered i.v. Low dose computed tomography (CT) images were acquired from the base of the brain to the proximal thighs for attenuation correction and anatomic localization. Positron emission tomography (P ET) images were acquired in the same distribution beginning 61 minutes after injection. Images includ ing fused PET/CT images were reconstructed in axial, coronal, and sagittal planes. Automated exposure control technique was employed. The dose-length product was 815.03mGy-cm. COMPARISON: 10/22/2024 and 07/31/2024 FINDINGS: Head/neck: There is symmetric increased activity in the nares, oral cavity, palatine tonsils, posterior nasophar ynx, laryngeal muscles and ocular muscles without CT correlate, likely physiologic. No pathologically enlarged cervical lymphadenopathy or suspicious foci of increased FDG uptake in the visualized head or neck. Chest: Mild emphysema. There is a 11 mm spiculated nodule in the right upper lobe with maximal SUV of 6.7. T here is an additional 10 x 8 mm nodule along a linear band of atelectasis/scarring in the left upper lobe with maximal SUV of 6.1. The nodule has a more solid appearance than on the CT from 07/31/2024. M ild discoid atelectasis at the lingula and basilar segments of the bilateral lower lobes. Additional mild peripheral atelectasis/scarring at the medial right middle lobe. No other suspicious pulmonary n odules, pneumonia, pulmonary edema or pleural effusion. Heart size is normal. No pericardial effusion . Thoracic aorta is normal in caliber. No pathologically enlarged or FDG avid thoracic lymphadenopath y. There are bilateral breast implants, asymmetrically larger on the left where there has also been prior left mastectomy. Abdomen/pelvis/proximal thighs: Physiologic renal accumulation and excretion of FDG activity in the kidneys, bladder and along portio ns of ureters. Normal degree and heterogenous pattern of increased uptake throughout the liver withou t radiologic correlate or dominant FDG avid lesion. The gallbladder, pancreas, spleen and bilateral a drenal glands are normal. Mild uptake scattered throughout the bowels without radiologic correlate, a lso likely physiologic. Postoperative change of prior appendectomy. No other abnormal foci of increas ed FDG uptake or pathologically enlarged lymphadenopathy in the abdomen, pelvis or proximal thighs. M ild uptake overlying the bilateral greater trochanters consistent with trochanteric bursitis. Musculoskeletal: Callus formation and mild uptake associated with a subacute nonunited fracture at the lateral right n inth rib which is new since CT dated 07/31/2024. No other suspicious lytic, blastic or FDG avid bone l esions. IMPRESSION: 1. Mild emphysema with increased uptake associated with an 11 mm spiculated nodule right upper lobe a nd a 10 x 8 mm nodule in the left upper lobe. Differential for age would include infectious/inflammat ory nodules and malignancy either primary or metastatic. Consider CT-guided biopsy of the larger and more dense right upper lobe nodule. Reviewed, dictated and finalized at location A. IMPRESSION: 1. Mild emphysema with increased uptake associated with an 11 mm spiculated nod ule right upper lobe and a 10 x 8 mm nodule in the left upper lobe. Differentia l for age would include infectious/inflammatory nodules and malignancy either p rimary or metastatic. Consider CT-guided biopsy of the larger and more dense ri ght upper lobe nodule.
--- OUTSIDE RECORDS SUMMARY | 2024-11-27 11:42 | XMS_ITS ---
Author Organization [facility] Address [address] [place] [address] [place] [address] Care Team Providers Care Fiscal Accounting Clerk Name Role Phone Amari Dong MD Primary Care Provider + [phone] Active Problems Problem Noted Date Diagnosed Date [...] (07/08/2019): Added automatically from request for surgery [id number] Assessment & Plan (11/03/2019 1:27 PM CDT): [...] (06/20/2019): Added automatically from request for surgery [id number] Assessment & Plan (08/25/2019 4:33 PM PIPE MANUFACTURE SUPERVISOR): X-rays taken the office today show maintenance of alignment. Alignment is near anatomic. Clinically she has excellent flexion up to 115. She is going to continue with physical therapy then transition to a home exercise program once the prescription is complete. Follow up with me in 1 month repeat x-rays Assessment & Plan (07/28/2019 8:37 PM PIPE MANUFACTURE SUPERVISOR): X-rays show alignment. No evidence of [...] x-rays Assessment & Plan (07/14/2019 2:31 PM PIPE MANUFACTURE SUPERVISOR): Patient was given a prescription for outpatient physical therapy. She can weight bear as tolerated with the knee locked in full extension using the immobilizer. We discussed wound care. She will need follow-up in 2 weeks to remove the adhesive bandage. Repeat x-rays at office visit in 2 weeks Assessment & Plan (07/07/2019 3:40 PM PIPE MANUFACTURE SUPERVISOR): Repeat x-rays show persistent displacement transverse [...] today. Assessment & Plan (06/23/2019 12:34 PM PIPE MANUFACTURE SUPERVISOR): The patient has a displaced comminuted fracture of the patella. She will need open reduction and internal fixation of the patella and patellar tendon. She will need to be immobilizer for approximately 6 weeks postoperatively. She did not wish to have her surgery performed prior to [place]. She will be scheduled for surgery after [place]. We discussed the risks of surgery including but not limited to persistent pain decreased range of motion stiffness and weakness. Informed consent was obtained. Displaced osteochondral frac ture of right patella 06/20/2019 02/22/2020 Overview (06/26/2019): Added automatically from request for surgery [id number]
--- OUTSIDE RECORDS SUMMARY | 2024-11-27 11:42 | XMS_ITS | Clinical Summary ---
Author Organization [facility] Address [address] [place] [address] [place] [address] Care Team Providers Care Tray Line Worker Name Role Phone Amari Dong MD Primary Care Provider + [phone] Allergies Active Allergy Reactions Criticality Noted Date [...] (07/08/2019): Added automatically from request for surgery [id number] Assessment & Plan (11/03/2019 1:27 PM CDT): [...] (06/20/2019): Added automatically from request for surgery [id number] Assessment & Plan (08/25/2019 4:33 PM NATUROPATHIC ONCOLOGY PROVIDER): X-rays taken the office today show maintenance of alignment. Alignment is near anatomic. Clinically she has excellent flexion up to 115. She is going to continue with physical therapy then transition to a home exercise program once the prescription is complete. Follow up with me in 1 month repeat x-rays Assessment & Plan (07/28/2019 8:37 PM NATUROPATHIC ONCOLOGY PROVIDER): X-rays show alignment. No evidence of displacement. [...] x-rays Assessment & Plan (07/14/2019 2:31 PM NATUROPATHIC ONCOLOGY PROVIDER): Patient was given a prescription for outpatient physical therapy. She can weight bear as tolerated with the knee locked in full extension using the immobilizer. We discussed wound care. She will need follow-up in 2 weeks to remove the adhesive bandage. Repeat x-rays at office visit in 2 weeks Assessment & Plan (07/07/2019 3:40 PM NATUROPATHIC ONCOLOGY PROVIDER): Repeat x-rays show persistent displacement transverse comminuted [...] today. Assessment & Plan (06/23/2019 12:34 PM NATUROPATHIC ONCOLOGY PROVIDER): The patient has a displaced comminuted fracture of the patella. She will need open reduction and internal fixation of the patella and patellar tendon. She will need to be immobilizer for approximately 6 weeks postoperatively. She did not wish to have her surgery performed prior to [place]. She will be scheduled for surgery after [place]. We discussed the risks of surgery including but not limited to persistent pain decreased range of motion stiffness and weakness. Informed consent was obtained. 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 07/08/2019 Added automatically from req uest for surgery [id number] Family History Medical History Relation Name Comments [...] on file Legal Sex Female 8:23 PM NATUROPATHIC ONCOLOGY PROVIDER Gender Identity Not on file Sexual Orientation Not on file Obstetrics History Last Filed Vital Signs Vital Sign Reading Time Taken Comments Blood Pressure 123/85 07/31/2024 4:21 PM NATUROPATHIC ONCOLOGY PROVIDER Pulse 81 07/31/2024 4:21 PM NATUROPATHIC ONCOLOGY PROVIDER Temperature 36.6 C (97.8 F) 07/31/2024 4:21 PM NATUROPATHIC ONCOLOGY PROVIDER Respiratory Rate 17 07/31/2024 4:21 PM NATUROPATHIC ONCOLOGY PROVIDER Oxygen Saturation 99% 07/31/2024 4:21 PM NATUROPATHIC ONCOLOGY PROVIDER Inhaled Oxygen Concentration - - Weight 77.1 kg (169 lb 15.6 oz) 025 10:32 AM NATUROPATHIC ONCOLOGY PROVIDER Height 172.7 cm (5' 8) 11/25/2021 1:06 [...] 02/23/2015, 01/13/2014 Medical Devices Implanted Type Area Electrotyper Apprentice Device Identifier Shelf Expiration Date Model / Serial / Lot Implants N/A: Breast [employer]hew/Rich[employer]/ Ortho [id number] Tc-100 7mm Hexagon Washer Orthopedic Nonsterile - [id number] Implanted:Qty: 2 on 07/09/2019 by Pavan Momin DO at [facility] Right: Knee [employer]hew/[employer]/Or tho [id number] / / [employer]hew[employer]/ Ortho [id number] Nieves-Loc 4mm 6mm 46mm 15mm Self Tap Cannulated Trocar Hip 2.5mm - [id number] Implanted:Qty: 1 on 07/09/2019 by Pavan Momin DO at [facility] Right: Knee Lu[employer]hew/Rich[employer]/Or tho [id number] / / Lu[employer]hew/Richco/ Ortho [id number] 4mm 6mm 1.3mm 44mm 2.9mm Cannulated Self Tap Self Drill Trocar - [id number] Implanted:Qty: 1 on 07/09/2019 by Pavan Momin DO at [facility] Right: Knee Lu[employer] Nephew/Richco/Or tho [id number] / / Insurance JED DAHL [id number] [employer] SIG [id number] JED DAHL [id number] [employer] [facility] [address] [place] [address] [facility] Advance Directives For more information, please contact: [phone] * Full Code (Latest Code Status on File) Date Activated Date Inactivated Comments 02/22/2020 11:40 PM 02/23/2020 7:34 PM Care Teams Tray Line Worker Relationship Specialty Start Date End Date Amari Dong MD PCP - General 06/17/19
--- OUTSIDE RECORDS SUMMARY | 2024-11-27 11:42 | XMS_ITS | Referral Summary ---
Author Organization [facility] Address [address] [place] [address] [place] [address] Care Team Providers Care Healthcare Administration Intern Name Role Phone Amari Dong MD Primary Care Provider + [phone] Allergies Active Allergy Reactions Criticality Noted Date [...] (07/08/2019): Added automatically from request for surgery [id number] Assessment & Plan (11/03/2019 1:27 PM CDT): [...] (06/20/2019): Added automatically from request for surgery [id number] Assessment & Plan (08/25/2019 4:33 PM AEROTRIANGULATION SPECIALIST): X-rays taken the office today show maintenance of alignment. Alignment is near anatomic. Clinically she has excellent flexion up to 115. She is going to continue with physical therapy then transition to a home exercise program once the prescription is complete. Follow up with me in 1 month repeat x-rays Assessment & Plan (07/28/2019 8:37 PM AEROTRIANGULATION SPECIALIST): X-rays show alignment. No evidence of displacement. [...] x-rays Assessment & Plan (07/14/2019 2:31 PM AEROTRIANGULATION SPECIALIST): Patient was given a prescription for outpatient physical therapy. She can weight bear as tolerated with the knee locked in full extension using the immobilizer. We discussed wound care. She will need follow-up in 2 weeks to remove the adhesive bandage. Repeat x-rays at office visit in 2 weeks Assessment & Plan (07/07/2019 3:40 PM AEROTRIANGULATION SPECIALIST): Repeat x-rays show persistent displacement transverse comminuted [...] today. Assessment & Plan (06/23/2019 12:34 PM AEROTRIANGULATION SPECIALIST): The patient has a displaced comminuted fracture of the patella. She will need open reduction and internal fixation of the patella and patellar tendon. She will need to be immobilizer for approximately 6 weeks postoperatively. She did not wish to have her surgery performed prior to [place]. She will be scheduled for surgery after [place]. We discussed the risks of surgery including but not limited to persistent pain decreased range of motion stiffness and weakness. Informed consent was obtained. Displaced osteochondral frac ture of right patella 06/20/2019 02/22/2020 Overview (06/26/2019): Added automatically from request for surgery [id number] Immunizations Immunization Administration Dates Next Due Influenza, [...] on file Legal Sex Female 8:23 PM AEROTRIANGULATION SPECIALIST Gender Identity Not on file Sexual Orientation Not on file Last Filed Vital Signs Vital Sign Reading Time Taken Comments Blood Pressure 123/85 07/31/2024 4:21 PM AEROTRIANGULATION SPECIALIST Pulse 81 07/31/2024 4:21 PM AEROTRIANGULATION SPECIALIST Temperature 36.6 C (97.8 F) 07/31/2024 4:21 PM AEROTRIANGULATION SPECIALIST Respiratory Rate 17 07/31/2024 4:21 PM AEROTRIANGULATION SPECIALIST Oxygen Saturation 99% 07/31/2024 4:21 PM AEROTRIANGULATION SPECIALIST Inhaled Oxygen Concentration - - Weight 77.1 kg (169 lb 15.6 oz) 025 10:32 AM AEROTRIANGULATION SPECIALIST Height 172.7 cm (5' 8) 11/25/2021 1:06 PM CDT Body Mass Index 25.84 11/25/2021 1:06 PM CDT Plan of Treatment Not on file Medical Devices Implanted Type Area Non Cdl Driver Device Identifier Shelf Expiration Date Model / Serial / Lot Implants N/A: Breast [employer]hew/[employer]/ Ortho [id number] Tc-100 7mm Hexagon Washer Orthopedic Nonsterile - [id number] Implanted:Qty: 2 on 07/09/2019 by Pavan Momin DO at [facility] Right: Knee Luu [employer] Nephew/Richco/Or tho [id number] / / Lu[employer]hew/Richco/ Ortho [id number] Nieves-Loc 4mm 6mm 46mm 15mm Self Tap Cannulated Trocar Hip 2.5mm - [id number] Implanted:Qty: 1 on 07/09/2019 by Pavan Momin DO at [facility] Right: Knee Luu [employer] Nephew/Richco/Or tho [id number] / / Luu [employer]hew/Richco/ Ortho [id number] 4mm 6mm 1.3mm 44mm 2.9mm Cannulated Self Tap Self Drill Trocar - [id number] Implanted:Qty: 1 on 07/09/2019 by Pavan Momin DO at [facility] Right: Knee Luu [employer] Nephew/Richco/Or tho [id number] / / Insurance JED DAHL [id number] [facility] SIG [id number] IDCT [facility] Advance Directives For more information, please contact: [phone] * Full Code (Latest Code Status on File) Date Activated Date Inactivated Comments 02/22/2020 11:40 PM 02/23/2020 7:34 PM Care Teams Healthcare Administration Intern Relationship Specialty Start Date End Date Amari Dong MD PCP - General 06/17/19
[2024-11-27 12:05] LABS: Basophils Absolute Auto 0.1 K/mm3 (0.0-0.1); Basophils Percent Auto 0.9 % (0.2-1.2); Eosinophils Absolute Auto 0.2 K/mm3 (0-0.3); Hematocrit 40.1 % (37.0-47.0); Hemoglobin 13.4 g/dL (12.0-15.0); Immature Granulocyte Absolute 0.02 K/mm3 (0.00-0.031); Immature Granulocyte Percent A 0.2 % (0-0.5); Lymphocytes Absolute Auto 3.42 K/mm3 (0.9-3.2); Mean Corpuscular HGB Conc 33.4 g/dl (32-36); Mean Corpuscular Hemoglobin 30.2 pg (26-34); Mean Corpuscular Volume 90.5 fl (80-100); Mean Platelet Volume 9.5 fl (7.4-10.4); Monocytes Absolute Auto 0.8 K/mm3 (0.1-0.6); Monocytes Percent Auto 8.1 % (2.6-8.5); Neutrophils Absolute Auto 5.8 K/mm3 (1.3-6.7); Neutrophils Percent Auto 55.8 % (45.5-73.1); Platelet Count Result 323 k/mm3 (150-375); Red Blood Count 4.43 M/mm3 (4.2-5.4); Red Cell Distribution Width 12.9 % (11.5-14.5); White Blood Count 10.4 K/mm3 (4.5-10.0)
[2024-11-27 12:10] LABS: Glucose Point of Care 119 mg/dl (65-105)
[2024-11-27 12:16] LABS: Anion Gap 4 mmol/L (4-12); Blood Urea Nitrogen 9 mg/dL (7-17); Calcium 9.9 mg/dL (8.4-10.2); Carbon Dioxide 30 mmol/L (22-30); Chloride 103 mmol/L (98-107); Estimated CRCL calculation 86 ml/min; Estimated Glomerular Filt Rate > 60; Glucose 112 mg/dL (65-110); Potassium 4.7 mmol/L (3.4-5.0); Sodium 137 mmol/L (137-145)
[2024-11-27 12:22] LABS: Iron 127 ug/dL (37-170)
[2024-11-27 12:31] LABS: Percent Iron Saturation 34 % (20-50)
== END 2024-11-27 11:41 | disposition home or self-care (01) ==
PROVIDERS: PCP Family Medicine; Referring Provider Physician Assistant Medical; Visit Provider Nurse Practitioner Family
DX: E87.6 Hypokalemia (principal); D64.9 Anemia, unspecified; R91.8 Other nonspecific abnormal finding of lung field
CPT/HCPCS: 36415; 78815; 80048; 83540; 83550; 85025; A9552

== ENCOUNTER 2024-12-17 09:17 | Outpatient (CLI) | payer OTHER, SELFPAY ==
[2024-12-15 10:36] VITALS: BMI 27.7
--- NOTE | 2024-12-15 10:37 | PC.NURSE ---
Pre Radiology instructions Report to the outpatient [facility] on date _[id number]_ at time _0900_ for procedure Time: __1100__ YOU MAY BE MONITORED AT HOSPITAL FOR UP TO 4 HOURS AFTER YOUR PROCEDURE. A visitor will be allowed to accompany the patient into the hospital. You and your visitor will be asked to self-screen and do not enter if you have any COVID symptoms. A mask is OPTIONAL within the hospital. Patients are to have no food or drink 6 hours prior to procedure time Driving will be restricted after the procedure, you must have a person to drive you home. Labs will be drawn in preop area and once reviewed, you will be taken to radiology area for procedure. When the procedure is completed, you will be taken to outpatient where you will be monitored for several hours. You may have one visitor in this area. Other than holding anti-coagulants, patient may take other medication(s) as scheduled. Prior to your appointment date patients are instructed to hold anti-coagulants after discussing with ordering provider to stop. If unable to discontinue anti-coagulants please notify radiologist. ? No aspirin or warfarin (Coumadin) for 7 days prior to the procedure. ? No clopidogrel (Plavix), ticagrelor (Brilinta), prasugrel (Effient) or dabigatran (Pradaxa) for 5 days prior to the procedure. ? No rivaroxaban (Xarelto), apixaban (Eliquis), dipyridamole (Aggrenox or Persantine) or cilostazol (Pletal) for 2 days prior to the procedure. Medications to discontinue per physician: Date to take last dose: Please leave all valuables, including medications, at home the day of procedure. The hospital will not accept responsibility for valuables. Wear comfortable, loose fitting clothing.? Follow any additional instructions given to you from ordering provider. Telephone instructions given to __Dawn__and asked if any additional questions and then verbalized understanding. Patient advised to call scheduling provider office or registration scheduling [phone] if any additional questions.
[2024-12-17] VITALS (8 sets, daily range): BP systolic 99–109; BP diastolic 56–73; PULSE 77–96; RESP 16–20; TEMP 36.4; O2SAT 98–100; BMI 27.5
--- NOTE | ~2024-12-17 | XR_ITS ---
EXAMINATION: XR chest 1V DATE: 12/17/2024 12:14 INDICATION: status post right lung biopsy TECHNIQUE: frontal view of the chest was obtained. COMPARISON: 01/13/2014 FINDINGS: Small right apical pneumothorax. Subtle nodule projecting over the posterior right fifth rib correspo nding to the biopsied nodule which is concerning for primary bronchogenic carcinoma. No other airspac e opacities, pulmonary edema, pleural effusion or left-sided pneumothorax. The cardiomediastinal silh ouette is normal. Bilateral breast implants. Visualized bones and soft tissues are unremarkable. IMPRESSION: 1. Small right apical pneumothorax post percutaneous right lung biopsy. Reviewed, dictated and finalized at location A.
--- NOTE | ~2024-12-17 | CT_ITS ---
EXAMINATION: CT biopsy lung w/imaging DATE: 12/17/2024 12:09 INDICATION: Solitary pulmonary nodule TECHNIQUE: The procedure including the risks and benefits was discussed with the patient. Risks discu ssed included infection, approximately 1/20 risk of symptomatic hemorrhage beyond mild hemoptysis, ap proximately 1/3 risk of pneumothorax, and approximately 1/10 risk of pneumothorax severe enough to wa rrant chest tube placement. The patient understood the risks and agreed to proceed. The patient was p laced left lateral decubitus position. The skin overlying the lateral left chest was prepped and john ped in sterile fashion. Anesthetic was administered with 1% lidocaine subcutaneously. A [address] needle was advanced under CT guidance to the lesion of interest. A 20 gauge core biopsy needle wa s then used to obtain 3 core biopsy specimens. The needle was removed and the entry site was cleaned and dressed. There were no immediate complications. The dose-length product was 242.32 mGy-cm. FINDINGS: CT images demonstrate the outer needle tip adjacent to a 1.5 x 1.0 cm right upper lobe nodu le. IMPRESSION: 1. Successful CT-guided biopsy of a 1.5 cm right upper lobe nodule. Reviewed, dictated and finalized at location B.
--- NOTE | ~2024-12-17 | XR_ITS ---
EXAMINATION: XR chest 1V portable DATE: 12/17/2024 13:36 INDICATION: Status post right lung biopsy TECHNIQUE: frontal view of the chest was obtained. COMPARISON: Chest radiograph dated 12/17/2024 at 12:11 PM FINDINGS: No significant interval change in a small pneumothorax in right upper lung zone. No pulmonary edema, pleural effusion or left-sided pneumothorax. The cardiomediastinal silhouette is normal. IMPRESSION: 1. Unchanged small pneumothorax at the right upper lung zone post right lung biopsy. Reviewed, dictated and finalized at location A. IMPRESSION: 1. Unchanged small pneumothorax at the right upper lung zone post right lung bi opsy.
--- NOTE | ~2024-12-17 | XR_ITS ---
EXAMINATION: XR chest 1V portable DATE: 12/17/2024 15:14 INDICATION: Status post percutaneous right lung biopsy TECHNIQUE: frontal view of the chest was obtained. COMPARISON: Chest radiograph dated 12/17/2024 at 12:11 PM and 1:34 PM FINDINGS: No significant interval change in a small pneumothorax at the right upper lung zone. Subtle opacity l ateral right upper lung zone likely reflecting the biopsied nodule. No other airspace opacities, pulm onary edema, pleural effusion or right-sided pneumothorax. The cardiomediastinal silhouette is normal . IMPRESSION: 1. Unchanged small right pneumothorax post percutaneous biopsy of a right upper lobe nodule which is concerning for primary bronchogenic carcinoma. Reviewed, dictated and finalized at location B.
[2024-12-17 10:02] LABS: Prothrombin Time 12.9 Seconds (11.1-14.7)
--- OUTSIDE RECORDS SUMMARY | 2024-12-17 10:02 | XMS_ITS ---
Author Organization [facility] Address [address] [place] [address] [place] [address] Care Team Providers Care Gas Substation Operator Name Role Phone Amari Dong MD Primary Care Provider + [phone] Active Problems Problem Noted Date Diagnosed Date [...] (07/08/2019): Added automatically from request for surgery [id number] Assessment & Plan (11/03/2019 1:27 PM CDT): [...] (06/20/2019): Added automatically from request for surgery [id number] Assessment & Plan (08/25/2019 4:33 PM MANAGER HUMAN RESOURCES): X-rays taken the office today show maintenance of alignment. Alignment is near anatomic. Clinically she has excellent flexion up to 115. She is going to continue with physical therapy then transition to a home exercise program once the prescription is complete. Follow up with me in 1 month repeat x-rays Assessment & Plan (07/28/2019 8:37 PM MANAGER HUMAN RESOURCES): X-rays show alignment. No evidence of displacement. [...] x-rays Assessment & Plan (07/14/2019 2:31 PM MANAGER HUMAN RESOURCES): Patient was given a prescription for outpatient physical therapy. She can weight bear as tolerated with the knee locked in full extension using the immobilizer. We discussed wound care. She will need follow-up in 2 weeks to remove the adhesive bandage. Repeat x-rays at office visit in 2 weeks Assessment & Plan (07/07/2019 3:40 PM MANAGER HUMAN RESOURCES): Repeat x-rays show persistent displacement transverse comminuted [...] today. Assessment & Plan (06/23/2019 12:34 PM MANAGER HUMAN RESOURCES): The patient has a displaced comminuted fracture of the patella. She will need open reduction and internal fixation of the patella and patellar tendon. She will need to be immobilizer for approximately 6 weeks postoperatively. She did not wish to have her surgery performed prior to [place]. She will be scheduled for surgery after [place]. We discussed the risks of surgery including but not limited to persistent pain decreased range of motion stiffness and weakness. Informed consent was obtained. 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
--- OUTSIDE RECORDS SUMMARY | 2024-12-17 10:02 | XMS_ITS | Referral Summary ---
Author Organization [facility] Address [address] [place] [address] [place] [address] Care Team Providers Care Dairy Supplies Sales Representative Name Role Phone Amari Dong MD Primary Care Provider + [phone] Allergies Active Allergy Reactions Criticality Noted Date [...] (07/08/2019): Added automatically from request for surgery [id number] Assessment & Plan (11/03/2019 1:27 PM CDT): [...] (06/20/2019): Added automatically from request for surgery [id number] Assessment & Plan (08/25/2019 4:33 PM REMOTE ENCODING CENTER MANAGER): X-rays taken the office today show maintenance of alignment. Alignment is near anatomic. Clinically she has excellent flexion up to 115. She is going to continue with physical therapy then transition to a home exercise program once the prescription is complete. Follow up with me in 1 month repeat x-rays Assessment & Plan (07/28/2019 8:37 PM REMOTE ENCODING CENTER MANAGER): X-rays show alignment. No evidence of [...] x-rays Assessment & Plan (07/14/2019 2:31 PM REMOTE ENCODING CENTER MANAGER): Patient was given a prescription for outpatient physical therapy. She can weight bear as tolerated with the knee locked in full extension using the immobilizer. We discussed wound care. She will need follow-up in 2 weeks to remove the adhesive bandage. Repeat x-rays at office visit in 2 weeks Assessment & Plan (07/07/2019 3:40 PM REMOTE ENCODING CENTER MANAGER): Repeat x-rays show persistent displacement transverse [...] today. Assessment & Plan (06/23/2019 12:34 PM REMOTE ENCODING CENTER MANAGER): The patient has a displaced comminuted fracture of the patella. She will need open reduction and internal fixation of the patella and patellar tendon. She will need to be immobilizer for approximately 6 weeks postoperatively. She did not wish to have her surgery performed prior to [place]. She will be scheduled for surgery after [place]. We discussed the risks of surgery including but not limited to persistent pain decreased range of motion stiffness and weakness. Informed consent was obtained. Displaced osteochondral frac ture of right patella 06/20/2019 02/22/2020 Overview (06/26/2019): Added automatically from request for surgery [id number] Immunizations Immunization Administration Dates Next Due Influenza, [...] on file Legal Sex Female 8:23 PM REMOTE ENCODING CENTER MANAGER Gender Identity Not on file Sexual Orientation Not on file Last Filed Vital Signs Vital Sign Reading Time Taken Comments Blood Pressure 123/85 07/31/2024 4:21 PM REMOTE ENCODING CENTER MANAGER Pulse 81 07/31/2024 4:21 PM REMOTE ENCODING CENTER MANAGER Temperature 36.6 C (97.8 F) 07/31/2024 4:21 PM REMOTE ENCODING CENTER MANAGER Respiratory Rate 17 07/31/2024 4:21 PM REMOTE ENCODING CENTER MANAGER Oxygen Saturation 99% 07/31/2024 4:21 PM REMOTE ENCODING CENTER MANAGER Inhaled Oxygen Concentration - - Weight 77.1 kg (169 lb 15.6 oz) 025 10:32 AM REMOTE ENCODING CENTER MANAGER Height 172.7 cm (5' 8) 11/25/2021 1:06 PM CDT Body Mass Index 25.84 11/25/2021 1:06 PM CDT Plan of Treatment Not on file Medical Devices Implanted Type Area Creel Cleaner Device Identifier Shelf Expiration Date Model / Serial / Lot Implants N/A: Breast [employer]u [employer]hew/Rich[employer]/ Ortho [id number] Tc-100 7mm Hexagon Washer Orthopedic Nonsterile - [id number] Implanted:Qty: 2 on 07/09/2019 by Pavan Momin DO at [facility] Right: Knee Lu[employer] Nephew/Richco/Or tho [id number] / / Luu [employer] Nephew/Richco/ Ortho [id number] Nieves-Loc 4mm 6mm 46mm 15mm Self Tap Cannulated Trocar Hip 2.5mm - [id number] Implanted:Qty: 1 on 07/09/2019 by Pavan Momin DO at [facility] Right: Knee Lu[employer] Nephew/Richco/Or tho [id number] / / Lu[employer] Nephew/Richco/ Ortho [id number] 4mm 6mm 1.3mm 44mm 2.9mm Cannulated Self Tap Self Drill Trocar - [id number] Implanted:Qty: 1 on 07/09/2019 by Pavan Momin DO at [facility] Right: Knee Lu[employer] Nephew/Richco/Or tho [id number] / / Insurance JED DAHL [id number] [facility] SIG [id number] IDWV [facility] Advance Directives For more information, please contact: [phone] * Full Code (Latest Code Status on File) Date Activated Date Inactivated Comments 02/22/2020 11:40 PM 02/23/2020 7:34 PM Care Teams Dairy Supplies Sales Representative Relationship Specialty Start Date End Date Amari Dong MD PCP - General 06/17/19
--- OUTSIDE RECORDS SUMMARY | 2024-12-17 10:02 | XMS_ITS | Clinical Summary ---
Author Organization [facility] Address [address] [place] [address] [place] [address] Care Team Providers Care Solder Cream Maker Name Role Phone Amari Dong MD Primary Care Provider + [phone] Allergies Active Allergy Reactions Criticality Noted Date [...] (07/08/2019): Added automatically from request for surgery [id number] Assessment & Plan (11/03/2019 1:27 PM CDT): [...] (06/20/2019): Added automatically from request for surgery [id number] Assessment & Plan (08/25/2019 4:33 PM TECHNICAL FELLOW): X-rays taken the office today show maintenance of alignment. Alignment is near anatomic. Clinically she has excellent flexion up to 115. She is going to continue with physical therapy then transition to a home exercise program once the prescription is complete. Follow up with me in 1 month repeat x-rays Assessment & Plan (07/28/2019 8:37 PM TECHNICAL FELLOW): X-rays show alignment. No evidence of displacement. [...] x-rays Assessment & Plan (07/14/2019 2:31 PM TECHNICAL FELLOW): Patient was given a prescription for outpatient physical therapy. She can weight bear as tolerated with the knee locked in full extension using the immobilizer. We discussed wound care. She will need follow-up in 2 weeks to remove the adhesive bandage. Repeat x-rays at office visit in 2 weeks Assessment & Plan (07/07/2019 3:40 PM TECHNICAL FELLOW): Repeat x-rays show persistent displacement transverse comminuted [...] today. Assessment & Plan (06/23/2019 12:34 PM TECHNICAL FELLOW): The patient has a displaced comminuted fracture of the patella. She will need open reduction and internal fixation of the patella and patellar tendon. She will need to be immobilizer for approximately 6 weeks postoperatively. She did not wish to have her surgery performed prior to [place]. She will be scheduled for surgery after [place]. We discussed the risks of surgery including but not limited to persistent pain decreased range of motion stiffness and weakness. Informed consent was obtained. 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 07/08/2019 Added automatically from req uest for surgery [id number] Family History Medical History Relation Name Comments [...] on file Legal Sex Female 8:23 PM TECHNICAL FELLOW Gender Identity Not on file Sexual Orientation Not on file Obstetrics History Last Filed Vital Signs Vital Sign Reading Time Taken Comments Blood Pressure 123/85 07/31/2024 4:21 PM TECHNICAL FELLOW Pulse 81 07/31/2024 4:21 PM TECHNICAL FELLOW Temperature 36.6 C (97.8 F) 07/31/2024 4:21 PM TECHNICAL FELLOW Respiratory Rate 17 07/31/2024 4:21 PM TECHNICAL FELLOW Oxygen Saturation 99% 07/31/2024 4:21 PM TECHNICAL FELLOW Inhaled Oxygen Concentration - - Weight 77.1 kg (169 lb 15.6 oz) 025 10:32 AM TECHNICAL FELLOW Height 172.7 cm (5' 8) 11/25/2021 1:06 [...] 02/23/2015, 01/13/2014 Medical Devices Implanted Type Area Supervisor Sewer Maintenance Device Identifier Shelf Expiration Date Model / Serial / Lot Implants N/A: Breast [employer]/ Ortho [id number] Tc-100 7mm Hexagon Washer Orthopedic Nonsterile - [id number] Implanted:Qty: 2 on 07/09/2019 by Pavan Momin DO at [facility] Right: Knee [employer]hew/Rich[employer]/Or tho [id number] / / [employer]hew[employer]Rich[employer]/ Ortho [id number] Nieves-Loc 4mm 6mm 46mm 15mm Self Tap Cannulated Trocar Hip 2.5mm - [id number] Implanted:Qty: 1 on 07/09/2019 by Pavan Momin DO at [facility] Right: Knee [employer]hew/Richco/Or tho [id number] / / [employer]hew/Richco/ Ortho [id number] 4mm 6mm 1.3mm 44mm 2.9mm Cannulated Self Tap Self Drill Trocar - [id number] Implanted:Qty: 1 on 07/09/2019 by Pavan Momin DO at [facility] Right: Knee [employer]hew/Richco/Or tho [id number] / / Insurance JED DAHL [id number] [employer] SIG [id number] JED DAHL [id number] IDPA [facility] [place] [address] [place] [address] [facility] Advance Directives For more information, please contact: [phone] * Full Code (Latest Code Status on File) Date Activated Date Inactivated Comments 02/22/2020 11:40 PM 02/23/2020 7:34 PM Care Teams Solder Cream Maker Relationship Specialty Start Date End Date Amari Dong MD PCP - General 06/17/19
--- NOTE | 2024-12-17 12:03 | S_PTH ---
PATIENT: Jessica Rivera LOC: [facility] U#:[id number] AGE/SX: 54/F ROOM: RE12/17/[address]: Reyes Smith MD : 1970 BED: DIS: 12/17/2024 SPEC #: [id number] RECD: 12/17/24 12:35 STATUS: VICK REQ #: [id number] PADMINI: 12/17/24 12:[address]: Jamison Goncalves DEPT: [facility] Surgical RECD BY: Isaak Barroso ENTERED: 12/17/24 12:36 SP TYPE: Surgical OTHR DR: MD Amari Vargas MD Tissues: A - Lung Biopsy Procedures: TTF Unstained Slides Hematoxylin and Eosin Stain Gross and Microscopic Level 4 CK 20 CK 7 BROOKE-3
--- NOTE | 2024-12-17 16:29 | SUR.PHASEII ---
1609 - dr. plascencia called in regards to 3rd chest xray. okayed to discharge home. pt instructed to go to ER with any SOB, bright red sputum, or any symptoms that are concerning. pt verbalized understanding.
== END 2024-12-17 16:20 | disposition home or self-care (01) ==
PROVIDERS: PCP Family Medicine; Referring Provider Nurse Practitioner Family; Visit Provider Radiology Diagnostic Radiology
PROC: BB24ZZZ Computerized Tomography (CT Scan) of Bilateral Lungs (ICD-10-PCS; CPT 32408; principal; 2024-12-17 11:00)
DX: R91.1 Solitary pulmonary nodule (principal)
CPT/HCPCS: 32408; 36415; 71045; 85610; 88305; 88342

== ENCOUNTER 2024-12-18 12:30 | Outpatient (CLI) | payer OTHER, SELFPAY ==
--- OUTSIDE RECORDS SUMMARY | 2024-12-18 12:52 | XMS_ITS | Referral Summary ---
Author Organization [facility] Address [address] [place] [address] [place] [address] Care Team Providers Care Rivet Passer Name Role Phone Amari Dogn MD Primary Care Provider + [phone] Allergies Active Allergy Reactions Criticality Noted Date [...] (07/08/2019): Added automatically from request for surgery [id number] Assessment & Plan (11/03/2019 1:27 PM CDT): [...] (06/20/2019): Added automatically from request for surgery [id number] Assessment & Plan (08/25/2019 4:33 PM BUS ASSISTANT): X-rays taken the office today show maintenance of alignment. Alignment is near anatomic. Clinically she has excellent flexion up to 115. She is going to continue with physical therapy then transition to a home exercise program once the prescription is complete. Follow up with me in 1 month repeat x-rays Assessment & Plan (07/28/2019 8:37 PM BUS ASSISTANT): X-rays show alignment. No evidence of displacement. [...] x-rays Assessment & Plan (07/14/2019 2:31 PM BUS ASSISTANT): Patient was given a prescription for outpatient physical therapy. She can weight bear as tolerated with the knee locked in full extension using the immobilizer. We discussed wound care. She will need follow-up in 2 weeks to remove the adhesive bandage. Repeat x-rays at office visit in 2 weeks Assessment & Plan (07/07/2019 3:40 PM BUS ASSISTANT): Repeat x-rays show persistent displacement transverse comminuted [...] today. Assessment & Plan (06/23/2019 12:34 PM BUS ASSISTANT): The patient has a displaced comminuted fracture of the patella. She will need open reduction and internal fixation of the patella and patellar tendon. She will need to be immobilizer for approximately 6 weeks postoperatively. She did not wish to have her surgery performed prior to [place]. She will be scheduled for surgery after [place]. We discussed the risks of surgery including but not limited to persistent pain decreased range of motion stiffness and weakness. Informed consent was obtained. Displaced osteochondral frac ture of right patella 06/20/2019 02/22/2020 Overview (06/26/2019): Added automatically from request for surgery [id number] Immunizations Immunization Administration Dates Next Due Influenza, [...] on file Legal Sex Female 8:23 PM BUS ASSISTANT Gender Identity Not on file Sexual Orientation Not on file Last Filed Vital Signs Vital Sign Reading Time Taken Comments Blood Pressure 123/85 07/31/2024 4:21 PM BUS ASSISTANT Pulse 81 07/31/2024 4:21 PM BUS ASSISTANT Temperature 36.6 C (97.8 F) 07/31/2024 4:21 PM BUS ASSISTANT Respiratory Rate 17 07/31/2024 4:21 PM BUS ASSISTANT Oxygen Saturation 99% 07/31/2024 4:21 PM BUS ASSISTANT Inhaled Oxygen Concentration - - Weight 77.1 kg (169 lb 15.6 oz) 025 10:32 AM BUS ASSISTANT Height 172.7 cm (5' 8) 11/25/2021 1:06 PM CDT Body Mass Index 25.84 11/25/2021 1:06 PM CDT Plan of Treatment Not on file Medical Devices Implanted Type Area Veneer Drier Device Identifier Shelf Expiration Date Model / Serial / Lot Implants N/A: Breast [employer]/ Ortho [id number] Tc-100 7mm Hexagon Washer Orthopedic Nonsterile - [id number] Implanted:Qty: 2 on 07/09/2019 by Pavan Momin DO at [facility] Right: Knee [employer]hew/[employer]/Or tho [id number] / / [employer]hew[employer]/ Ortho [id number] Nieves-Loc 4mm 6mm 46mm 15mm Self Tap Cannulated Trocar Hip 2.5mm - [id number] Implanted:Qty: 1 on 07/09/2019 by Pavan Momin DO at [facility] Right: Knee Lu[employer]hew/Richco/Or tho [id number] / / Lu[employer]hew/Richco/ Ortho [id number] 4mm 6mm 1.3mm 44mm 2.9mm Cannulated Self Tap Self Drill Trocar - [id number] Implanted:Qty: 1 on 07/09/2019 by Pavan Momin DO at [facility] Right: Knee Lu[employer]hew/Richco/Or tho [id number] / / Insurance JED DAHL [id number] [facility] SIG [id number] IDMI [facility] Advance Directives For more information, please contact: [phone] * Full Code (Latest Code Status on File) Date Activated Date Inactivated Comments 02/22/2020 11:40 PM 02/23/2020 7:34 PM Care Teams Rivet Passer Relationship Specialty Start Date End Date Amari Dong MD PCP - General 06/17/19
--- OUTSIDE RECORDS SUMMARY | 2024-12-18 12:52 | XMS_ITS ---
Author Organization [facility] Address [address] [place] [address] [place] [id number] Care Team Providers Care Filler Shaker Name Role Phone Amari Dong MD Primary Care Provider + [phone] Active Problems Problem Noted Date Diagnosed Date [...] (07/08/2019): Added automatically from request for surgery [id number] Assessment & Plan (11/03/2019 1:27 PM CDT): [...] (06/20/2019): Added automatically from request for surgery [id number] Assessment & Plan (08/25/2019 4:33 PM SEAFOOD FISHERMAN): X-rays taken the office today show maintenance of alignment. Alignment is near anatomic. Clinically she has excellent flexion up to 115. She is going to continue with physical therapy then transition to a home exercise program once the prescription is complete. Follow up with me in 1 month repeat x-rays Assessment & Plan (07/28/2019 8:37 PM SEAFOOD FISHERMAN): X-rays show alignment. No evidence of displacement. [...] x-rays Assessment & Plan (07/14/2019 2:31 PM SEAFOOD FISHERMAN): Patient was given a prescription for outpatient physical therapy. She can weight bear as tolerated with the knee locked in full extension using the immobilizer. We discussed wound care. She will need follow-up in 2 weeks to remove the adhesive bandage. Repeat x-rays at office visit in 2 weeks Assessment & Plan (07/07/2019 3:40 PM SEAFOOD FISHERMAN): Repeat x-rays show persistent displacement transverse comminuted [...] today. Assessment & Plan (06/23/2019 12:34 PM SEAFOOD FISHERMAN): The patient has a displaced comminuted fracture of the patella. She will need open reduction and internal fixation of the patella and patellar tendon. She will need to be immobilizer for approximately 6 weeks postoperatively. She did not wish to have her surgery performed prior to [place]. She will be scheduled for surgery after [place]. We discussed the risks of surgery including but not limited to persistent pain decreased range of motion stiffness and weakness. Informed consent was obtained. Displaced osteochondral frac ture of right patella 06/20/2019 02/22/2020 Overview (06/26/2019): Added automatically from request for surgery [id number]
--- OUTSIDE RECORDS SUMMARY | 2024-12-18 12:52 | XMS_ITS | Clinical Summary ---
Author Organization [facility] Address [address] [place] [address] [place] [id number] Care Team Providers Care Pet Caretaker Name Role Phone Amari Dong MD Primary Care Provider + [phone] Allergies Active Allergy Reactions Criticality Noted Date [...] (07/08/2019): Added automatically from request for surgery [id number] Assessment & Plan (11/03/2019 1:27 PM CDT): [...] (06/20/2019): Added automatically from request for surgery [id number] Assessment & Plan (08/25/2019 4:33 PM REPORT SPECIALIST): X-rays taken the office today show maintenance of alignment. Alignment is near anatomic. Clinically she has excellent flexion up to 115. She is going to continue with physical therapy then transition to a home exercise program once the prescription is complete. Follow up with me in 1 month repeat x-rays Assessment & Plan (07/28/2019 8:37 PM REPORT SPECIALIST): X-rays show alignment. No evidence of [...] x-rays Assessment & Plan (07/14/2019 2:31 PM REPORT SPECIALIST): Patient was given a prescription for outpatient physical therapy. She can weight bear as tolerated with the knee locked in full extension using the immobilizer. We discussed wound care. She will need follow-up in 2 weeks to remove the adhesive bandage. Repeat x-rays at office visit in 2 weeks Assessment & Plan (07/07/2019 3:40 PM REPORT SPECIALIST): Repeat x-rays show persistent displacement transverse [...] today. Assessment & Plan (06/23/2019 12:34 PM REPORT SPECIALIST): The patient has a displaced comminuted fracture of the patella. She will need open reduction and internal fixation of the patella and patellar tendon. She will need to be immobilizer for approximately 6 weeks postoperatively. She did not wish to have her surgery performed prior to [place]. She will be scheduled for surgery after [place]. We discussed the risks of surgery including but not limited to persistent pain decreased range of motion stiffness and weakness. Informed consent was obtained. 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 07/08/2019 Added automatically from req uest for surgery [id number] Family History Medical History Relation Name Comments [...] on file Legal Sex Female 8:23 PM REPORT SPECIALIST Gender Identity Not on file Sexual Orientation Not on file Obstetrics History Last Filed Vital Signs Vital Sign Reading Time Taken Comments Blood Pressure 123/85 07/31/2024 4:21 PM REPORT SPECIALIST Pulse 81 07/31/2024 4:21 PM REPORT SPECIALIST Temperature 36.6 C (97.8 F) 07/31/2024 4:21 PM REPORT SPECIALIST Respiratory Rate 17 07/31/2024 4:21 PM REPORT SPECIALIST Oxygen Saturation 99% 07/31/2024 4:21 PM REPORT SPECIALIST Inhaled Oxygen Concentration - - Weight 77.1 kg (169 lb 15.6 oz) 025 10:32 AM REPORT SPECIALIST Height 172.7 cm (5' 8) 11/25/2021 [...] 02/23/2015, 01/13/2014 Medical Devices Implanted Type Area Rotary Soil Stabilizer Operator Device Identifier Shelf Expiration Date Model / Serial / Lot Implants N/A: Breast [employer]/ Ortho [id number] Tc-100 7mm Hexagon Washer Orthopedic Nonsterile - [id number] Implanted:Qty: 2 on 07/09/2019 by Pavan Momin DO at [facility] Right: Knee [employer] tho [id number] / / [employer] Ortho [id number] Nieves-Loc 4mm 6mm 46mm 15mm Self Tap Cannulated Trocar Hip 2.5mm - [id number] Implanted:Qty: 1 on 07/09/2019 by Pavan Momin DO at [facility] Right: Knee [employer]Or tho [id number] / / [employer] Ortho [id number] 4mm 6mm 1.3mm 44mm 2.9mm Cannulated Self Tap Self Drill Trocar - [id number] Implanted:Qty: 1 on 07/09/2019 by Pavan Momin DO at [facility] Right: Knee [employer]Or tho [id number] / / Insurance JED DAHL [id number] [employer] SIG [id number] JED DAHL [id number] IDPA [facility] [place] [address] [place] [address] [facility] CMR Advance Directives For more information, please contact: [phone] * Full Code (Latest Code Status on File) Date Activated Date Inactivated Comments 02/22/2020 11:40 PM 02/23/2020 7:34 PM Care Teams Pet Caretaker Relationship Specialty Start Date End Date Amari Dong MD PCP - General 06/17/19
[2024-12-18 13:09] LABS: White Blood Count 9.4 K/mm3 (4.5-10.0)
[2024-12-18 13:19] LABS: Glucose 107 mg/dL (65-110)
== END 2024-12-18 12:31 | disposition home or self-care (01) ==
LOC: ANHLAB 12:33
PROVIDERS: PCP Family Medicine; Visit Provider Physician Assistant Medical
DX: R73.09 Other abnormal glucose (principal); D72.829 Elevated white blood cell count, unspecified
CPT/HCPCS: 36415; 82947; 85048